=== PATIENT | female | born 1945 | race Caucasian/White ===

== ENCOUNTER → 2016-10-09 | Outpatient (REF) | payer OTHER ==
[~2016-10-09] MED LIST: ALBU17IN INH; AMLO25TA PO; ASPI1TAB PO; CRAN600T PO; FOLI800T PO; LEVO25TA5 PO; LISI10TA4 PO; METF500T PO; METH2.5TA PO; MULTLIQ7 PO; PRED10TA PO; PRED20TA PO; ZOCO10TA PO; [UNRECOGNIZED DRUG - CODE] PO
[2016-10-09 12:47] LABS: CREATININE FOR GFR 0.98 MG/DL (0.55-1.02); GLOMERULAR FILTRATION RATE 59.2 (>39)
== END ==
LOC: M LABDRAW1 11:24
PROVIDERS: ATTEND Internal Medicine Pulmonary Disease
DX: J44.9 Chronic obstructive pulmonary disease, unspecified (principal); R91.8 Other nonspecific abnormal finding of lung field

== ENCOUNTER → 2017-03-06 | Outpatient (CLI) | payer OTHER ==
[~2017-03-06] MED LIST changes: +ANOR1AER INH; +CRANCAP10 PO; -METF500T PO; +METF500T13 PO; +MULTTAB26 PO
[2017-03-06 13:37] LABS: INR 1.03
== END ==
LOC: M SMT 10:37
PROVIDERS: ATTEND Internal Medicine Pulmonary Disease
DX: Z01.812 Encounter for preprocedural laboratory examination (principal); R91.8 Other nonspecific abnormal finding of lung field

== ENCOUNTER → 2017-03-21 | Outpatient (CLI) | payer OTHER ==
[~2017-03-21] MED LIST changes: +LIDOCAINE 1% MDV 20ML VIAL As Ordered ONE
--- NOTE | 2017-03-21 10:42 | REP ---
CHEST, POSTBIOPSY: Postbiopsy image of the chest is performed in the expiratory phase of respiration. There is resultant crowding of lung markings in each lung base. No pneumothorax is seen. IMPRESSION: No pneumothorax status post right lung biopsy. Signed by Jose D Rodriguez MD 03/21/2017 03:27 P
--- NOTE | 2017-03-21 13:38 | REP ---
POST BIOPSY CHEST: Post biopsy PA view of the chest is performed in the expiratory phase of respiration. There is a very tiny right apical pneumothorax. Very mild atelectatic changes are seen in the lung bases. IMPRESSION: Tiny right apical pneumothorax status post right lung biopsy. Signed by Jose D Rodriguez MD 03/21/2017 03:31 P
--- NOTE | 2017-03-21 15:38 | REP ---
CT GUIDED RIGHT LOWER LOBE LUNG BIOPSY: The procedure was performed under the direct supervision of Dr. Rodriguez. The patient has a history of ground glass density nodule in the superior segment of the right lower lobe, which had gradually increased in size from the previous exam. This was seen on a previous CT scan from [facility] performed on 02/21/2017. The risks and benefits of the procedure were explained to the patient and informed consent was obtained. The right lower lobe lung nodule was localized using CT guidance. The skin was prepped and draped in a sterile fashion. 1% Xylocaine was used as a local anesthetic. Using CT guidance a 19/20-gauge coaxial needle biopsy system was inserted and advanced into the nodule. Four core biopsy samples were obtained and sent to the lab. Post biopsy images demonstrate a tiny right pneumothorax. The patient's vital signs were stable at this time. Her oxygen saturations were 96% as they were when she arrived. The patient complained of no pain. She was placed on 2 liters of O2 via nasal cannula. Images obtained 5 minutes later show stable right pneumothorax. Single view PA chest x-ray performed immediately after the procedure shows no evidence of pneumothorax. A single view PA chest x-ray performed two hours later shows a tiny right apical pneumothorax. At the 2 hour film the patient's vital signs were stable and her O2 saturations were status quo as to when she arrived. She complained of no pain. The patient was then discharged home. The patient tolerated the procedure well and there were no immediate complications. Reviewed by AGUEDA Fink 03/21/2017 03:53 PEdited and Signed by Jose D Rodriguez MD 03/21/2017 04:16 P
== END | disposition home or self-care (01) ==
LOC: M RADPRO 08:20
PROVIDERS: ATTEND Internal Medicine Pulmonary Disease
DX: C34.31 Malignant neoplasm of lower lobe, right bronchus or lung (principal); J95.811 Postprocedural pneumothorax

== ENCOUNTER → 2017-04-08 | Outpatient (CLI) | payer OTHER ==
[~2017-04-08] MED LIST changes: -LIDOCAINE 1% MDV 20ML VIAL As Ordered ONE
--- NOTE | 2017-04-10 14:45 | REP ---
Whole body PET CT scan: The study is performed for a right lung nodule. CT guided biopsy of the right lung nodule identified well differentiated adenocarcinoma on 03/24/2017. Whole body PET CT scanning is performed from skull base to the upper thighs. Neck and supraclavicular areas: There is artifactual uptake in the tonsillar tissues bilaterally. There are no hypermetabolic foci. Chest: There are no hypermetabolic foci. The patient's known right lung nodule has a standard uptake value of 1.4, non hypermetabolic. Abdomen, pelvis and upper thighs: There are no hypermetabolic foci. There is nonspecific bowel uptake and physiologic renal excretion. No hepatic or adrenal foci are identified. Impression: There are no hypermetabolic foci. The patient's known right lung nodule demonstrates non hypermetabolic uptake. The studies performed with 10 mCi of F 18 FDG. Signed by Jose D Guevara MD 04/10/2017 02:36 P
== END ==
LOC: M PLARAD 13:13
PROVIDERS: ATTEND Internal Medicine Pulmonary Disease
DX: R91.1 Solitary pulmonary nodule (principal)
CPT/HCPCS: 78815; A9552

== ENCOUNTER → 2017-04-24 | Outpatient (CLI) | payer OTHER ==
--- NOTE | 2017-04-24 14:30 | REPMRS ---
Patient History The patient states she had a clinical breast exam in 03/2017. Patient is postmenopausal and has history of lung cancer at age 72. Family history of breast cancer in sister at age 50 and breast cancer in daughter at age 47. Benign stereotatic breast biopsy of the right breast, 1996. Digital Woman Screen Mammo: April 24, 2017 - Exam #: [id number] Bilateral CC and MLO view(s) were taken. Technologist: Marzena Townsend, Technologist Prior study comparison: April 15, 2016, digital woman screen mammo performed at [facility]. April 12, 2015, digital woman screen mammo performed at [facility]. April 12, 2014, digital woman screen mammo performed at [facility]. FINDINGS: There are scattered fibroglandular densities. There has been no change in the appearance of the mammogram from the prior studies. There is a mild amount of scattered fibroglandular density which is fairly symmetric. There is no interval development of dominant mass, architectural distortion, or clustered microcalcification suggestive of malignancy. ASSESSMENT: BI-RADS/ACR category 1 mammogram. Negative. Recommendation Routine screening mammogram in 1 year (for women over age 40). This mammogram was interpreted with the aid of an FDA-approved computer-aided dectection system. Electronically Signed By: Ovi Jeffers MD 04/24/17 [id number]
== END ==
LOC: M WHC 13:47
PROVIDERS: ATTEND Nurse Practitioner Family
DX: Z12.31 Encounter for screening mammogram for malignant neoplasm of breast (principal); Z78.0 Asymptomatic menopausal state; Z92.89 Personal history of other medical treatment; Z85.118 Personal history of other malignant neoplasm of bronchus and lung; Z80.3 Family history of malignant neoplasm of breast

== ENCOUNTER → 2017-04-24 | Outpatient (CLI) | payer OTHER ==
[2017-04-24 11:38] LABS: ABG BASE EXCESS -1.5 (-2.0-2.0); ABG DEVICE ROOM AIR; ABG HCO3 22.1 MEQ/L (22.0-26.0); ABG PARTIAL PRESSURE CO2 33.7 mmHg (35.0-45.0); ABG PARTIAL PRESSURE O2 74.9 mmHg (75.0-100.0); ABG STANDARD HCO3 23.2 MEQ/L (22.0-26.0); ABG TOTAL CO2 23.1 MEQ/L (23.0-31.0); ABG pH (ARTERIAL) 7.434 UNITS (7.350-7.450)
[2017-04-24 11:56] LABS: MEAN CORPUSCULAR HEMOGLOBIN 32.6 pg (27.0-33.0); MEAN CORPUSCULAR HGB CONC 33.6 g/dl (32.0-36.5); MEAN CORPUSCULAR VOLUME 96.9 fl (80.0-96.0); RED CELL DISTRIBUTION WIDTH 14.8 % (11.5-14.5); WHITE BLOOD COUNT 6.3 K/mm3 (4.0-10.0)
[2017-04-24 12:24] LABS: INR 1.04
[2017-04-24 12:49] LABS: ANION GAP 9 MEQ/L (8-16); BLOOD UREA NITROGEN 16 MG/DL (7-18); CALCIUM LEVEL 9.9 MG/DL (8.8-10.2); CARBON DIOXIDE LEVEL 26 MEQ/L (21-32); CHLORIDE LEVEL 107 MEQ/L (98-107); CREATININE FOR GFR 0.96 MG/DL (0.55-1.02); GLOMERULAR FILTRATION RATE > 60.0 (>39); GLUCOSE, FASTING 101 MG/DL (83-110); POTASSIUM SERUM 4.9 MEQ/L (3.5-5.1); SODIUM LEVEL 142 MEQ/L (136-145)
--- NOTE | 2017-04-24 20:57 | ECGEPIP ---
Stationary ECG Study [facility] Test Date: 2017-04-24 Pat Name: CHRISTIN SONI Department: Room: - Gender: F Integrated Circuits Inspector: VINEET : 1945 Requested By: Gabriel Conde Order Number: [id number] Reading MD: Domingo Buenrostro Measurements Intervals [place] Rate: 75 P: 47 VT: 180 QRS: 11 QRSD: 79 T: 61 QT: 347 QTc: 388 Interpretive Statements SINUS RHYTHM Decreased heart rate compared with 12/08/2014. Electronically Signed On 04-24-2017 20:56:34 EDT by Domingo Buenrostro
--- NOTE | 2017-04-25 14:28 | REP ---
Clinical: History of lung cancer . Comparison: 12/13/2014. Technique: PA and lateral. Findings: The mediastinum and cardiac silhouette are normal. The lung torres demonstrates chronic appearing changes including blunting to the posterior pleural angles on lateral radiograph without acute consolidation, effusion, or pneumothorax. The skeletal structures are intact and normal. Impression: 1. No acute cardiopulmonary process. Signed by Juan Mora MD 04/24/2017 08:53 P
== END ==
LOC: M ADMPAT 10:18
PROVIDERS: ATTEND Thoracic Surgery (Cardiothoracic Vascular Surgery)
DX: Z01.818 Encounter for other preprocedural examination (principal); C34.31 Malignant neoplasm of lower lobe, right bronchus or lung; Z12.31 Encounter for screening mammogram for malignant neoplasm of breast; Z78.0 Asymptomatic menopausal state; Z92.89 Personal history of other medical treatment
CPT/HCPCS: 36415; 71020; 80048; 81001; 82803; 85027; 85610; 85730; 93005; G0202

== ENCOUNTER 2017-05-06 06:53 | Inpatient (IN) | payer OTHER, MEDICARE ==
[2017-04-24 11:30] VITALS: BP 156/80
[~2017-05-06] VITALS: Ht 162.6 cm; Wt 89.9 kg
[2017-05-06] VITALS (9 sets, daily range): BP systolic 104–122; BP diastolic 49–59; O2SAT 98
[2017-05-06] MEDS ORDERED: LR 1,000 ML IV SCH (07:00)
[2017-05-06] MEDS ORDERED: MUPIROCIN 2% OINT 22 GM TUBE TOP ONE (07:45)
[2017-05-06] MEDS ORDERED: VANCOMYCIN HCL 1,000 MG, VIAL MATE ADAPTER 1 EACH in D5W 250 ML IV ONE (07:45)
[2017-05-06] MEDS ORDERED: MIDAZOLAM INJ 2 MG/2 ML VIAL (J2250) As Ordered ONE ×2 (08:08→09:09)
[2017-05-06] MEDS ORDERED: fentaNYL 100 MCG/2 ML INJECTION (J3010) As Ordered ONE ×3 (08:08→11:06)
[2017-05-06] MEDS ORDERED: PANTOPRAZOLE 40MG TAB (PROTONIX) PO SCH (09:00)
[2017-05-06] MEDS ORDERED: CETACAINE SPRAY 20GM (FLOOR STOCK) As Ordered ONE (09:04)
[2017-05-06] MEDS ORDERED: BUPIVACAINE LIPOSOME/PF 1.3% 20 ML VIAL (13.3MG/ML)(EXPAREL) As Ordered ONE (09:05)
[2017-05-06] MEDS ORDERED: BUPIVACAINE HCL 0.5% 10 ML VIAL As Ordered ONE (09:06)
[2017-05-06] MEDS ORDERED: PROPOFOL 200 MG/20 ML VIAL As Ordered ONE (09:11)
[2017-05-06] MEDS ORDERED: LIDOCAINE 2% INJ 100 MG/5 ML SDV (FOR ANES.) As Ordered ONE (09:12)
[2017-05-06] MEDS ORDERED: ROCURONIUM BROMIDE 50 MG/5 ML VIAL/SYRINGE As Ordered ONE ×2 (09:12→10:59)
[2017-05-06] MEDS ORDERED: MIDAZOLAM INJ 2 MG/2 ML VIAL (J2250) IV PRN ×2 (09:30)
[2017-05-06] MEDS ORDERED: fentaNYL 100 MCG/2 ML INJECTION (J3010) IV PRN (09:30)
[2017-05-06] MEDS ORDERED: ePHEDrine SULFATE 25 MG/5 ML(5MG/ML) SYRINGE As Ordered ONE (11:05)
[2017-05-06] MEDS ORDERED: PHENYLephrine HCL 500 MCG/5 ML (100MCG/ML) SYRINGE (J2370) As Ordered ONE (11:05)
[2017-05-06] MEDS ORDERED: ONDANSETRON 4MG/2ML VIAL (J2405) As Ordered ONE (11:06)
[2017-05-06] MEDS ORDERED: dexameTHASONE 4 MG/ML 1ML VIAL (J1100) As Ordered ONE (11:06)
[2017-05-06] MEDS ORDERED: BUPIVACAINE HCL 0.25% 30 ML VIAL As Ordered ONE (11:06)
[2017-05-06] MEDS ORDERED: HYDROmorphone HCL 2 MG/ML 1ML VIAL (J1170) As Ordered ONE (12:44)
[2017-05-06] MEDS ORDERED: GLYCOPYRROLATE INJ 0.2 MG/ML 2 ML VIAL As Ordered ONE (12:53)
[2017-05-06] MEDS ORDERED: NEOSTIGMINE 1MG/ML 5 ML SYRINGE (J2710) As Ordered ONE (12:53)
[2017-05-06] MEDS ORDERED: ONDANSETRON 4MG/2ML VIAL (J2405) IV PRN (13:00)
[2017-05-06] MEDS ORDERED: WALLBOXKEY XX PRN (13:00)
[2017-05-06] MEDS ORDERED: EPIDURAL/PCA KEYS XX PRN (13:00)
[2017-05-06] MEDS ORDERED: NALOXONE INJ 0.4 MG/1 ML VIAL (J2310) IV PRN (13:00)
[2017-05-06] MEDS ORDERED: FENTANYL 2MCG/ML BUPIVACAINE 0.0625% NACL 250ML IV BAG As Ordered ONE (13:08)
[2017-05-06] MEDS ORDERED: DEXTROSE 50% 50 ML SYRINGE IV PRN (13:15)
[2017-05-06] MEDS ORDERED: GLUCOSE 4 GM CHEW TABLET PO PRN (13:15)
[2017-05-06] MEDS ORDERED: ACETAMINOPHEN TAB 650MG DOSE (2X325MG) PO PRN (13:15)
[2017-05-06] MEDS ORDERED: PERCOCET 5MG/325MG TAB PO PRN (13:15)
[2017-05-06] MEDS ORDERED: GLUCAGON FOR INJ 1 MG VIAL (J1610) SC PRN (13:15)
[2017-05-06] MEDS ORDERED: BISACODYL 10 MG SUPP PR PRN (13:15)
[2017-05-06] MEDS ORDERED: LEVALBUTEROL 1.25 MG/0.5 ML CONCENTRATE NEB NEB PRN (13:15)
[2017-05-06 13:37] LABS: ABG BASE EXCESS -3.7 (-2.0-2.0); ABG HCO3 23.6 MEQ/L (22.0-26.0); ABG PARTIAL PRESSURE CO2 51.8 mmHg (35.0-45.0); ABG PARTIAL PRESSURE O2 82.1 mmHg (75.0-100.0); ABG STANDARD HCO3 21.3 MEQ/L (22.0-26.0); ABG TOTAL CO2 25.2 MEQ/L (23.0-31.0); ABG pH (ARTERIAL) 7.276 UNITS (7.350-7.450)
[2017-05-06 13:39] LABS: BASO % 0.4 % (0.0-1.0); EOS % 0.3 % (0.0-3.0); LARGE UNSTAINED CELL # 0.1 K/mm3 (0.0-0.4); LARGE UNSTAINED CELL % 0.8 % (0.0-4.0); LYMPH # 0.7 K/mm3 (1.5-4.5); LYMPH % 8.9 % (24.0-44.0); MEAN CORPUSCULAR HEMOGLOBIN 32.3 pg (27.0-33.0); MEAN CORPUSCULAR HGB CONC 32.6 g/dl (32.0-36.5); MEAN CORPUSCULAR VOLUME 99.2 fl (80.0-96.0); MONO # 0.2 K/mm3 (0.0-0.8); NEUTROPHILS # 7.3 K/mm3 (1.8-7.7); NEUTROPHILS % 87.6 % (36.0-66.0); PLATELET COUNT, AUTOMATED 256 k/mm3 (150-450); RED CELL DISTRIBUTION WIDTH 14.3 % (11.5-14.5); WHITE BLOOD COUNT 8.3 K/mm3 (4.0-10.0)
--- NOTE | 2017-05-06 13:52 | REP ---
Clinical: Status post right lower lobectomy. Comparison: 04/24/2017. Findings: Two right-sided chest tubes extend to the medial upper hemithorax. No pneumothorax or significant opacities involving the right lung zone are appreciated. Left base demonstrates trace atelectasis. Mediastinum and cardiac silhouette are stable. Skeletal structures are intact. Small amount of subcutaneous emphysema along the right lateral chest wall. Impression: Status post right lower lobectomy. Trace left basilar atelectasis suggested. Signed by Juan Mora MD 05/06/2017 01:44 P
[2017-05-06] MEDS: LEVALBUTEROL 1.25 MG/0.5 ML CONCENTRATE NEB NEB SCH ×2 (14:00→20:08)
[2017-05-06] MEDS ORDERED: KETOROLAC 30 MG/ML VIAL (J1885) As Ordered ONE (14:03)
[2017-05-06] MEDS: KETOROLAC 30 MG/ML VIAL (J1885) IV SCH ×2 (14:10→19:59)
[2017-05-06 14:51] LABS: ANION GAP 9 MEQ/L (8-16); BLOOD UREA NITROGEN 14 MG/DL (7-18); CALCIUM LEVEL 8.5 MG/DL (8.8-10.2); CARBON DIOXIDE LEVEL 24 MEQ/L (21-32); CHLORIDE LEVEL 110 MEQ/L (98-107); CREATININE FOR GFR 0.82 MG/DL (0.55-1.02); GLOMERULAR FILTRATION RATE > 60.0 (>39); GLUCOSE, FASTING 153 MG/DL (83-110); POTASSIUM SERUM 4.5 MEQ/L (3.5-5.1); SODIUM LEVEL 143 MEQ/L (136-145)
[2017-05-06 14:59] LABS: ABG HCO3 22.9 MEQ/L (22.0-26.0); ABG PARTIAL PRESSURE CO2 49.4 mmHg (35.0-45.0); ABG PARTIAL PRESSURE O2 95.8 mmHg (75.0-100.0); ABG STANDARD HCO3 21.1 MEQ/L (22.0-26.0); ABG TOTAL CO2 24.4 MEQ/L (23.0-31.0); ABG pH (ARTERIAL) 7.284 UNITS (7.350-7.450)
[2017-05-06] MEDS: ONDANSETRON 4MG/2ML VIAL (J2405) IV PRN ×2 (15:39→20:16)
[2017-05-06] MEDS: LISINOPRIL 20 MG TAB PO SCH (15:43)
[2017-05-06] MEDS: FENTANYL/BUPIVACAINE/NACL BAG 250 ML EPIDURAL SCH (15:44)
[2017-05-06] MEDS: OCUVITE 1 TAB PO SCH (15:46)
[2017-05-06] MEDS: ASPIRIN 81 MG ENTERIC TAB PO SCH (15:47)
[2017-05-06] MEDS: PANTOPRAZOLE 40MG INJ (PROTONIX) (C9113) IV SCH (15:50)
[2017-05-06] MEDS: KCL 20MEQ IN D5/NS 1000ML 1,000 ML IV SCH (15:50)
[2017-05-06] MEDS: HumaLOG INSULIN (NovoLOG) PER UNIT SC SCH ×2 (18:28→21:00)
[2017-05-06] MEDS: VANCOMYCIN HCL 1,000 MG, VIAL MATE ADAPTER 1 EACH in D5W 250 ML IV SCH (20:00)
[2017-05-06] MEDS: DOCUSATE SODIUM 100 MG CAP PO SCH (21:06)
[2017-05-06] MEDS: HEPARIN SOD (PORCINE) 5000 UNITS/ML VIAL SC SCH (21:07)
[2017-05-07] VITALS (19 sets, daily range): BP systolic 93–129; BP diastolic 47–106; O2SAT 95–97
[2017-05-07] MEDS ORDERED: FUROSEMIDE 40 MG/4 ML VIAL (J1940) IV ONE ×2 (01:00→14:00)
[2017-05-07] MEDS: KETOROLAC 30 MG/ML VIAL (J1885) IV SCH ×4 (01:25→19:56)
[2017-05-07] MEDS: LEVALBUTEROL 1.25 MG/0.5 ML CONCENTRATE NEB NEB SCH ×4 (01:38→19:52)
[2017-05-07] MEDS: KCL 20MEQ IN D5/NS 1000ML 1,000 ML IV SCH (03:04)
[2017-05-07] MEDS: LEVOTHYROXINE 25MCG TABLET (0.025MG) PO SCH (05:39)
[2017-05-07 05:44] LABS: ABG BASE EXCESS -2.5 (-2.0-2.0); ABG HCO3 22.7 MEQ/L (22.0-26.0); ABG PARTIAL PRESSURE CO2 41.1 mmHg (35.0-45.0); ABG PARTIAL PRESSURE O2 86.6 mmHg (75.0-100.0); ABG STANDARD HCO3 22.4 MEQ/L (22.0-26.0); ABG pH (ARTERIAL) 7.361 UNITS (7.350-7.450)
[2017-05-07 05:50] LABS: BASO % 0.2 % (0.0-1.0); EOS % 0.3 % (0.0-3.0); LARGE UNSTAINED CELL # 0.2 K/mm3 (0.0-0.4); LARGE UNSTAINED CELL % 1.6 % (0.0-4.0); LYMPH % 10.9 % (24.0-44.0); MEAN CORPUSCULAR HEMOGLOBIN 32.8 pg (27.0-33.0); MEAN CORPUSCULAR HGB CONC 34.3 g/dl (32.0-36.5); MEAN CORPUSCULAR VOLUME 95.8 fl (80.0-96.0); MONO # 0.5 K/mm3 (0.0-0.8); MONO % 4.9 % (0.0-5.0); NEUTROPHILS # 7.7 K/mm3 (1.8-7.7); NEUTROPHILS % 82.2 % (36.0-66.0); PLATELET COUNT, AUTOMATED 244 k/mm3 (150-450); RED CELL DISTRIBUTION WIDTH 14.1 % (11.5-14.5); WHITE BLOOD COUNT 9.3 K/mm3 (4.0-10.0)
[2017-05-07 06:06] LABS: CALCIUM LEVEL 7.7 MG/DL (8.8-10.2); CREATININE FOR GFR 0.97 MG/DL (0.55-1.02); GLOMERULAR FILTRATION RATE 59.8 (>39); POTASSIUM SERUM 4.3 MEQ/L (3.5-5.1)
[2017-05-07] MEDS: ONDANSETRON 4MG/2ML VIAL (J2405) IV PRN ×3 (07:38→20:50)
--- NOTE | 2017-05-07 07:52 | RO ---
DATE OF PROCEDURE: 05/06/2017 PREPROCEDURE DIAGNOSIS: Right lower lobe squamous cell carcinoma. POSTPROCEDURE DIAGNOSIS: Right lower lobe squamous cell carcinoma. PROCEDURE: Right lower lobectomy, mediastinal node dissection, five level rib block, and bronchoscopy. SURGEON: Gabriel Waite MD CLINICAL MOLECULAR GENETICIST: ANESTHESIA: FINDINGS: The bronchoscopy revealed a normal branching tracheobronchial tree. There were no endobronchial lesions. The thoracotomy revealed a lung that had almost complete fissures, but was very sticky to dissect. She had numerous adhesions of the lower lobes in the mediastinum into the diaphragm. Mediastinal node dissection revealed quite bulky nodes, but they were all soft and looked anthracotic. DESCRIPTION OF PROCEDURE: Under satisfactory general anesthesia and single lumen tube endotracheal intubation, bronchoscope was placed in the tracheobronchial tree. Each branch was subsegment, thoroughly inspected and there were no endobronchial lesions. There was a normal branching tree. The patient was then placed in the left lateral decubitus position and was sterilely prepped and draped in the usual fashion. This was accomplished after intubating the patient with a double lumen tube and undertaking single lung ventilation. Incision was carried down through the subcutaneous tissue and the latissimus dorsi muscle was divided. The ischial serratus was spared. The chest was entered through the fifth intercostal space. Ribs were undercut. The above findings were noted and attention was first turned to the major fissure at the confluence of fissures. The pulmonary artery was eventually dissected and found within the depths of the fissure. The posterior mediastinal pleura was dissected so as to reveal the division between the bronchus intermedius and the upper lobe bronchus. The apical basilar segmental artery on the lower lobe was identified and a minor fissure was completed by use of OXANA Swan stapler after gaining a pathway from just above the inferior basilar segment artery to the posterior mediastinal pleura. The two large branches could then easily be seen, including the apical basilar segment. These were bluntly dissected and surrounded with a vessel loop. They were divided by use of a vascular OXANA stapler. The inferior pulmonary ligament was divided. In order to do so, numerous adhesions to the diaphragm and to the mediastinum had to be cleared. The inferior pulmonary vein was noted at the top of the inferior fissure and dissected free. It too could be surrounded by a vessel loop and was stapled by use of the OXANA vascular stapler. This then left the bronchus. There were numerous nodes on the bronchus and these were dissected free and sent as a separate specimen on the bronchus intermedius. The bronchus was clamped, the lung was tested, and the middle lobe came up nicely. The middle lobe bronchus could be easily ascertained and spared. The stapler was fired and the bronchus was amputated. The specimen was delivered to pathology for margins, which came back grossly clear. Attention was then turned to the mediastinum where the mediastinal pleura was incised between the superior vena cava and the trachea. The azygous vein was divided so as to obtain all the nodes. A complete node dissection was then undertaken and sent for pathological examination. The nodes extended down to the right main pulmonary artery and were dissected free and clear. After achieving adequate hemostasis, a five level rib block was undertaken with Exparel. Two chest tubes were placed, #28 curved and straight. After achieving adequate hemostasis, the ribs were reapproximated with use of #1 pericostal figure-of-8 sutures, the extrathoracic muscles by use of running #0 Vicryl suture and the subcutaneous tissue with the use of #3-0 Vicryl suture and the skin by use of #3-0 Monocryl subcuticular suture. The patient tolerated the procedure well and left the operating room in satisfactory condition for the recovery room.
[2017-05-07] MEDS ORDERED: metFORMIN (GLUCOPHAGE) 500 MG TAB PO SCH (08:00)
--- NOTE | 2017-05-07 08:34 | REP ---
Clinical: Status post right lower lobectomy. Technique: PA and lateral. Comparison: 05/06/1979 and 47 p.m. Findings: Postoperative changes involving the right hemithorax include to stable chest tubes as well as small amount of subcutaneous emphysema along the right lateral chest wall. A small residual right pleural effusion is suggested. No pneumothorax. The left hemithorax remains stable. The mediastinum and cardiac silhouette are within normal limits. Skeletal structures are intact. Impression: Postoperative changes involving the right hemithorax. Cannot exclude small right pleural effusion. Signed by Juan Mora MD 05/07/2017 08:25 A
[2017-05-07] MEDS: LISINOPRIL 20 MG TAB PO SCH (09:00)
[2017-05-07] MEDS: VANCOMYCIN HCL 1,000 MG, VIAL MATE ADAPTER 1 EACH in D5W 250 ML IV SCH ×2 (09:04→19:57)
[2017-05-07] MEDS: HEPARIN SOD (PORCINE) 5000 UNITS/ML VIAL SC SCH ×2 (09:20→20:50)
[2017-05-07] MEDS: ASPIRIN 81 MG ENTERIC TAB PO SCH (09:21)
[2017-05-07] MEDS: OCUVITE 1 TAB PO SCH (09:21)
[2017-05-07] MEDS: HumaLOG INSULIN (NovoLOG) PER UNIT SC SCH ×4 (09:21→20:48)
[2017-05-07] MEDS: DOCUSATE SODIUM 100 MG CAP PO SCH ×2 (09:21→20:49)
[2017-05-07] MEDS: MOM 30ML SUSPENSION UDC PO SCH (09:22)
[2017-05-07] MEDS: PANTOPRAZOLE 40MG INJ (PROTONIX) (C9113) IV SCH (09:22)
[2017-05-07] MEDS: FENTANYL/BUPIVACAINE/NACL BAG 250 ML EPIDURAL SCH (09:29)
[2017-05-07] MEDS: METOCLOPRAMIDE INJ 10MG/2ML VIAL (J2765) IV PRN (11:47)
--- NOTE | 2017-05-07 12:48 | IPN ---
DATE: 05/07/2017 This is now the first postoperative day for Mrs. Ingram status post right lower lobectomy and complete mediastinal node dissections. She has had a stable night of surgery. She had some decreased urine output yesterday with positive input and output and I therefore gave her Lasix. Her pain is being well controlled at the chest tube insertion site and at the incisional site. Her vital signs show a maximum temperature (t-max) of 98.7 with a heart rate that ranges between 77 and 90 in a sinus rhythm, respiratory rate of 18 to 20 without the use of accessory muscles, who is 98 to 99% saturated on 3 liters nasal cannula and whose blood pressure is ranging between 93/52 to 126/52. Her intake and output over the past 24 hours has been recorded as 4274 in and 560 out for a positivity of 3700 mL. She has put out 170 mL from the chest tube yesterday and this morning there is no air leak. In response to the Lasix last night, she put out 800 mL. PHYSICAL EXAMINATION: LUNGS: Her lungs show normal vesicular sounds. There are occasional scattered rhonchi on the right side, which clear with coughing. Percussion note is full to the diaphragm. CARDIAC EXAM: Without murmurs, clicks, gallops or rubs. I cannot feel her point of maximum impulse (PMI). S1, S2 are normal. ABDOMEN: Soft, nontender. Bowel sounds positive. There is no hepatomegaly. There is no costovertebral angle tenderness. EXTREMITIES: Show trace to 1+ pretibial edema. No calf tenderness. No differential swelling of the upper extremities. SKIN: Warm, dry and perfused without cyanosis or mottling, including that of the nail beds and knees. NECK: Supple. There is no jugular venous distention. No subcutaneous emphysema. Trachea is midline. MOUTH: Shows her mucous membranes to be pink and moist. Lips and commissures without lesions. There is no thrush. EYES: Show her pupils to be equal and reactive. Extraocular motions are intact. Sclerae anicteric. NEUROLOGIC: Shows II through XII intact with gross motor and gross sensation intact. Gait is not tested. PSYCHIATRIC: Shows her to be awake and alert, oriented times three with appropriate mood and affect and conversational. Her white count today is 9.3 with a hemoglobin and hematocrit of 11.9 and 34.8, down from 12.6 and 38.7. This is no doubt secondary to hemodilution. Platelet count is 244 and stable. Differential shows 82% neutrophils, 10% lymphocytes, 4% monocytes. There are no immature forms. No toxic granulations. Her electrolytes are normal with a BUN and creatinine of 18 and 0.97 with a glucose of 135 and a calcium of 7.7. Blood gases this morning show a pH of 7.36 with a PCO2 of 41 and PO2 of 86 and a base excess of -2.5. Her chest x-ray today shows her lung fully expanded to the chest wall. There is obligate volume loss of the right side secondary to the lobectomy. There is minimal subcutaneous emphysema. There are no infiltrates. Chest tubes are in good place. I have gone over the slides with DR. Arora of pathology. She has a small, less than 1 cm well differentiated adenocarcinoma. Intraparenchymal nodes are negative. Mediastinal nodes are still pending. IMPRESSION: 1. Adenocarcinoma of the right lower lobe, clinical stage 1A. 2. Diabetes. 3. Hypertension. 4. Coronary artery disease. 5. Hypothyroidism. 6. Chronic obstructive pulmonary disease (COPD). PLAN/DISCUSSION: I will keep her chest tubes on suction today. I will again gently diurese her. We will discontinue the arterial line and write her for transfer to the progressive care unit (PCU).
[2017-05-07] MEDS: diphenhydrAMINE INJ 50MG/ML VIAL (J1200) IV PRN ×2 (14:39→20:50)
[2017-05-08] MEDS: LEVALBUTEROL 1.25 MG/0.5 ML CONCENTRATE NEB NEB SCH ×4 (01:40→19:45)
[2017-05-08] MEDS: KETOROLAC 30 MG/ML VIAL (J1885) IV SCH ×4 (03:17→20:20)
[2017-05-08 04:00] VITALS: BP 154/69
[2017-05-08 05:32] LABS: BASO % 0.4 % (0.0-1.0); EOS # 0.1 K/mm3 (0.0-0.50); EOS % 1.2 % (0.0-3.0); LARGE UNSTAINED CELL # 0.1 K/mm3 (0.0-0.4); LARGE UNSTAINED CELL % 1.4 % (0.0-4.0); LYMPH # 1.2 K/mm3 (1.5-4.5); LYMPH % 14.4 % (24.0-44.0); MEAN CORPUSCULAR HEMOGLOBIN 32.5 pg (27.0-33.0); MEAN CORPUSCULAR VOLUME 98.5 fl (80.0-96.0); MONO # 0.4 K/mm3 (0.0-0.8); MONO % 4.4 % (0.0-5.0); NEUTROPHILS # 6.7 K/mm3 (1.8-7.7); NEUTROPHILS % 78.1 % (36.0-66.0); PLATELET COUNT, AUTOMATED 214 k/mm3 (150-450); RED CELL DISTRIBUTION WIDTH 14.2 % (11.5-14.5); WHITE BLOOD COUNT 8.5 K/mm3 (4.0-10.0)
[2017-05-08 05:44] LABS: CALCIUM LEVEL 7.7 MG/DL (8.8-10.2); CREATININE FOR GFR 1.16 MG/DL (0.55-1.02); GLOMERULAR FILTRATION RATE 48.6 (>39); POTASSIUM SERUM 4.6 MEQ/L (3.5-5.1)
[2017-05-08] MEDS: LEVOTHYROXINE 25MCG TABLET (0.025MG) PO SCH (06:01)
[2017-05-08] MEDS: FENTANYL/BUPIVACAINE/NACL BAG 250 ML EPIDURAL SCH (06:06)
[2017-05-08] MEDS: HumaLOG INSULIN (NovoLOG) PER UNIT SC SCH ×4 (07:30→21:34)
[2017-05-08 08:00] VITALS: BP 119/58
--- NOTE | 2017-05-08 08:23 | REP ---
Clinical: Status post right lower lobectomy. Technique: PA and lateral. Comparison: 05/07/2017. Findings: Visualized portions of the mediastinum and cardiac silhouette are within normal limits. Two right-sided chest tubes are in stable position. A small right hydropneumothorax is identified within the apical air gap of approximately 15 mm. Bilateral opacities in the lung bases suggest scattered atelectasis. Small amount of subcutaneous emphysema along the right lateral chest wall related to surgery and chest tube placement is minimally improved. Skeletal structures appear intact. Impression: 1. Small right hydropneumothorax. 2. Bibasilar atelectasis and small amount of right lateral subcutaneous emphysema similar to prior examination. Signed by Juan Mora MD 05/08/2017 08:14 A
[2017-05-08] MEDS: OCUVITE 1 TAB PO SCH (08:38)
[2017-05-08] MEDS: DOCUSATE SODIUM 100 MG CAP PO SCH ×2 (08:38→20:20)
[2017-05-08] MEDS: VANCOMYCIN HCL 1,000 MG, VIAL MATE ADAPTER 1 EACH in D5W 250 ML IV SCH (08:38)
[2017-05-08] MEDS: ASPIRIN 81 MG ENTERIC TAB PO SCH (08:38)
[2017-05-08] MEDS: MOM 30ML SUSPENSION UDC PO SCH (08:38)
[2017-05-08] MEDS: LISINOPRIL 20 MG TAB PO SCH (08:39)
[2017-05-08] MEDS: PANTOPRAZOLE 40MG INJ (PROTONIX) (C9113) IV SCH (08:40)
[2017-05-08] MEDS: HEPARIN SOD (PORCINE) 5000 UNITS/ML VIAL SC SCH ×2 (08:40→20:20)
[2017-05-08 11:50] VITALS: BP 129/60
--- NOTE | 2017-05-08 14:16 | IPN ---
DATE: 05/08/2017 This is now the second postoperative day for Mrs. Ingram. She is doing well. She is in progressive care unit (PCU). Her pain is being well controlled and she is not short of breath. She has not yet had a bowel movement. She has not walked yet and the nurses are going to get her up and walk her. Her vital signs snow a T-max of 100.7 with a heart rate that ranges between 85 and 90 and in sinus rhythm with a respiratory rate of 18-20 without the use of accessory muscles, who is 96-97% saturated on 3 liters nasal cannula and has a blood pressure that ranges between 154/69 to 119/58. Her intake and output over the past 24 hours has been recorded as 3412 in and 2410 out for a positivity of 1000 mL. Her chest tube has put out 300 mL and there is no air leak. Weight today is 93.6. On physical examination, her lungs have normal vesicular sounds. Percussion note is full to the diaphragm. Cardiac exam is without murmurs, clicks, gallops or rubs. I cannot feel her point of maximum impulse (PMI). S1 and S2 are normal. Abdomen is soft and nontender. Bowel sounds are positive. There is no hepatomegaly. No CVA tenderness. There may be a trace of pit of pretibial edema. On her lower extremities, but there is no calf tenderness. Skin is warm, dry and perfused without cyanosis or mottling including that of the nail beds and knees. Neck is supple. There is no jugular venous distention. No subcutaneous emphysema. Trachea is midline. Mouth shows her mucous membranes to be pink and moist. Lips and commissures are without lesions. There is no thrush. Eyes show her pupils to be equal and reactive. Extraocular movements intact. Sclerae nonicteric. Neurologic shows II-XII intact along with gross motor and gross sensation intact. Gait is not tested. Psychiatric showed her to be awake, alert and oriented times three with appropriate and affect and conversational. White count today is 8.5 with hemoglobin and hematocrit 11.3 and 34.2 unchanged from yesterday with a platelet count of 214. Differential shows 78% neutrophils , 14% lymphocytes, 4% monocytes. There are no immature forms or toxic granulations. Her electrolytes are essentially normal with a BUN and creatinine of 18 and 1.16. Glucose is 117 with a calcium of 7.7. There are no blood gases on her today. Her chest x-ray shows the lung fully expanded to the chest wall. The costophrenic angles are sharp. There is a small apical air space on the right side. Chest tubes are in good place and there are no infiltrates. There is obligate volume loss of the right side secondary to lobectomy. I have gone over the slides with Dr. Herrera of pathology. They have discovered a second satellite tumor of well differentiated adenocarcinoma. This therefore makes a T3 lesion. All lymph nodes are negative. She therefore is going to pathologically stage out as T3N0M0 or stage II B disease. As such, she will need chemotherapy and I will present her at multidisciplinary tumor conference. IMPRESSION: 1. Stage II B, T3N0M0 adenocarcinoma, well differentiated. 2. Postoperative day #2 status post right lower lobectomy. 3. Diabetes. 4. Hypertension. 5. Coronary artery disease. 6. Hypothyroidism. 7. Chronic obstructive pulmonary disease (COPD). PLAN AND DISCUSSION: I will discontinue her chest tube suction today. There is no air leak. I will informed the patient of the change of staging. I will not diurese her today. [facility]
[2017-05-08 16:00] VITALS: BP 137/63
[2017-05-08] MEDS: ONDANSETRON 4MG/2ML VIAL (J2405) IV PRN (16:43)
[2017-05-08 20:00] VITALS: BP 135/75
[2017-05-08 23:59] VITALS: BP 140/64
[2017-05-09] MEDS: FENTANYL/BUPIVACAINE/NACL BAG 250 ML EPIDURAL SCH ×2 (01:12→20:29)
[2017-05-09] MEDS: KETOROLAC 30 MG/ML VIAL (J1885) IV SCH ×4 (01:23→20:41)
[2017-05-09] MEDS: LEVALBUTEROL 1.25 MG/0.5 ML CONCENTRATE NEB NEB SCH ×4 (02:00→20:13)
[2017-05-09 04:00] VITALS: BP 127/59
[2017-05-09 05:30] LABS: BASO % 0.5 % (0.0-1.0); EOS # 0.2 K/mm3 (0.0-0.50); EOS % 2.1 % (0.0-3.0); LARGE UNSTAINED CELL # 0.1 K/mm3 (0.0-0.4); LYMPH # 1.4 K/mm3 (1.5-4.5); LYMPH % 19.7 % (24.0-44.0); MEAN CORPUSCULAR HEMOGLOBIN 32.5 pg (27.0-33.0); MEAN CORPUSCULAR HGB CONC 33.1 g/dl (32.0-36.5); MEAN CORPUSCULAR VOLUME 98.4 fl (80.0-96.0); MONO # 0.3 K/mm3 (0.0-0.8); MONO % 4.3 % (0.0-5.0); NEUTROPHILS # 5.1 K/mm3 (1.8-7.7); NEUTROPHILS % 71.4 % (36.0-66.0); PLATELET COUNT, AUTOMATED 226 k/mm3 (150-450); WHITE BLOOD COUNT 7.1 K/mm3 (4.0-10.0)
[2017-05-09] MEDS: LEVOTHYROXINE 25MCG TABLET (0.025MG) PO SCH (05:37)
[2017-05-09 05:43] LABS: CALCIUM LEVEL 8.1 MG/DL (8.8-10.2); CREATININE FOR GFR 1.1 MG/DL (0.55-1.02); GLOMERULAR FILTRATION RATE 51.7 (>39); POTASSIUM SERUM 4.7 MEQ/L (3.5-5.1)
[2017-05-09] MEDS: ONDANSETRON 4MG/2ML VIAL (J2405) IV PRN (07:27)
[2017-05-09] MEDS: HumaLOG INSULIN (NovoLOG) PER UNIT SC SCH ×4 (07:30→20:41)
[2017-05-09 08:00] VITALS: BP 137/61
[2017-05-09] MEDS: ASPIRIN 81 MG ENTERIC TAB PO SCH (09:21)
[2017-05-09] MEDS: LISINOPRIL 20 MG TAB PO SCH (09:21)
[2017-05-09] MEDS: DOCUSATE SODIUM 100 MG CAP PO SCH ×2 (09:21→20:40)
[2017-05-09] MEDS: OCUVITE 1 TAB PO SCH (09:21)
[2017-05-09] MEDS: MOM 30ML SUSPENSION UDC PO SCH (09:22)
[2017-05-09] MEDS: HEPARIN SOD (PORCINE) 5000 UNITS/ML VIAL SC SCH ×2 (09:22→20:40)
[2017-05-09] MEDS: PANTOPRAZOLE 40MG INJ (PROTONIX) (C9113) IV SCH (09:22)
--- NOTE | 2017-05-09 09:42 | REP ---
PA and lateral chest: Comparison is 05/08/2017. The patient is status post right lower lobectomy. The two right thoracotomy tubes are unchanged. There is a small pneumothorax over the apex of the right lung, not significantly changed. Bibasilar atelectasis is again identified, not significantly changed. Cardiac size is normal. Small volume of subcutaneous emphysema along the right lateral chest wall is unchanged. There is an epidural catheter, unchanged. Impression: There is no significant interval change. Signed by Jose D Guevara MD 05/09/2017 08:52 A
[2017-05-09] MEDS ORDERED: FUROSEMIDE 40 MG/4 ML VIAL (J1940) IV ONE (10:30)
--- NOTE | 2017-05-09 10:47 | IPN ---
DATE: 05/09/2017 This is now the third postoperative day for Ms. Ingram. She is feeling a bit nauseated today and had some dry heaves last night. Her pain is being well controlled with the epidural catheter. Her vital signs show a T-max of 99.2 with a heart rate that ranges between 70 and 80 in sinus rhythm. Respiratory rate is constant at 18, who is 95% saturation on 3 liters nasal cannula. Blood pressures ranging between 137/61 to 127/59. Her intake and output over the past 24 hours is recorded at 1748 and 1870 for a negativity of 124 mL. She has put out 245 mL from the chest tube and she weighs 90.9 kilograms today compared to 93.6 kilograms yesterday On physical examination, she has some scattered rhonchi which cleared with coughing on both sides with the right greater than left. Percussion note is full to the diaphragm. Cardiac exam is without murmurs, clicks, gallops or rubs. I cannot feel her point of maximum impulse (PMI). S1 and S2 are normal. Abdomen is soft and nontender by tympanitic. Bowel sounds are positive. She has not yet had a bowel movement. Extremities still show 1+ pretibial edema with no calf tenderness. No differential swelling of the upper extremities. Skin is warm, dry and perfused without cyanosis or mottling including that of the nail beds and knees. Neck is supple. There is no jugular venous distention. No subcutaneous emphysema. Trachea is midline. Mouth shows her mucous membranes to be pink and moist. Lips and commissures are without lesions. There is no thrush. Eyes show her pupils to be equal and reactive. Extraocular movements intact. Sclerae nonicteric. Neurologic shows II-XII intact along with gross motor and gross sensation intact. Gait is not tested. Psychiatric showed her to be awake, alert and oriented times three with appropriate and affect and conversational. Her white count today is 7.1 with a hemoglobin and hematocrit of 11.6 and 35.0 and a platelet count of 226. Differential shows 71% neutrophils, 19% lymphocytes, 4% monocytes. Chemistry today normal with a BUN and creatinine of 19 and 1.1 with a glucose of 96 and a calcium 8.1. Her chest x-ray today still shows a small apical cap of air in the right cupula of the right hemithorax. Costophrenic angle is sharp. There is a little bit of atelectasis in the right lower hemithorax. Trachea is midline and there is minimal subcutaneous emphysema. I see no infiltrates. I have gone over the slides with Dr. Arora once again of pathology. The additional satellite lesion looks to be microscopic and therefore, she has been again down-staged to stage IA disease. All lymph nodes are negative. I think this still deserves a discussion at tumor conference. For the time being, I will defer to pathology staging. IMPRESSION: 1. Stage I A, [id number] adenocarcinoma well differentiated. 2. Postoperative day #3 status post right lower lobectomy. 3. Hypertension. 4. Diabetes. 5. Coronary artery disease. 6. Hypothyroidism. 7. Chronic obstructive pulmonary disease (COPD). PLAN AND DISCUSSION: I will diurese her today but I will continue her chest tube. Her chest tube is already off suction.
[2017-05-09] MEDS: METOCLOPRAMIDE INJ 10MG/2ML VIAL (J2765) IV PRN (11:33)
[2017-05-09 12:00] VITALS: BP 103/52
[2017-05-09 16:00] VITALS: BP 102/50
[2017-05-09 20:00] VITALS: BP 117/56
[2017-05-10] VITALS (7 sets, daily range): BP systolic 105–130; BP diastolic 52–59
[2017-05-10] MEDS: LEVALBUTEROL 1.25 MG/0.5 ML CONCENTRATE NEB NEB SCH ×4 (01:37→20:54)
[2017-05-10] MEDS: KETOROLAC 30 MG/ML VIAL (J1885) IV SCH ×4 (01:39→20:09)
[2017-05-10] MEDS: LEVOTHYROXINE 25MCG TABLET (0.025MG) PO SCH (05:13)
[2017-05-10 05:26] LABS: BASO % 0.4 % (0.0-1.0); EOS # 0.2 K/mm3 (0.0-0.50); EOS % 2.3 % (0.0-3.0); LARGE UNSTAINED CELL # 0.2 K/mm3 (0.0-0.4); LARGE UNSTAINED CELL % 2.7 % (0.0-4.0); LYMPH # 1.2 K/mm3 (1.5-4.5); LYMPH % 18.3 % (24.0-44.0); MEAN CORPUSCULAR HEMOGLOBIN 32.7 pg (27.0-33.0); MEAN CORPUSCULAR VOLUME 99.1 fl (80.0-96.0); MONO # 0.4 K/mm3 (0.0-0.8); MONO % 5.8 % (0.0-5.0); NEUTROPHILS # 4.6 K/mm3 (1.8-7.7); NEUTROPHILS % 70.5 % (36.0-66.0); PLATELET COUNT, AUTOMATED 247 k/mm3 (150-450); WHITE BLOOD COUNT 6.5 K/mm3 (4.0-10.0)
[2017-05-10 05:54] LABS: CALCIUM LEVEL 8.3 MG/DL (8.8-10.2); CREATININE FOR GFR 0.98 MG/DL (0.55-1.02); GLOMERULAR FILTRATION RATE 59.1 (>39); POTASSIUM SERUM 4.6 MEQ/L (3.5-5.1)
[2017-05-10] MEDS: HumaLOG INSULIN (NovoLOG) PER UNIT SC SCH ×4 (07:30→21:51)
[2017-05-10] MEDS: DOCUSATE SODIUM 100 MG CAP PO SCH ×2 (08:41→20:16)
[2017-05-10] MEDS: ASPIRIN 81 MG ENTERIC TAB PO SCH (08:41)
[2017-05-10] MEDS: MOM 30ML SUSPENSION UDC PO SCH (08:41)
[2017-05-10] MEDS: LISINOPRIL 20 MG TAB PO SCH (08:42)
[2017-05-10] MEDS: HEPARIN SOD (PORCINE) 5000 UNITS/ML VIAL SC SCH ×2 (08:42→20:09)
[2017-05-10] MEDS: PANTOPRAZOLE 40MG INJ (PROTONIX) (C9113) IV SCH (08:42)
[2017-05-10] MEDS: OCUVITE 1 TAB PO SCH (08:43)
--- NOTE | 2017-05-10 08:45 | REP ---
Clinical: Status post right lower lobectomy. Technique: PA and lateral. Comparison: 05/09/2017. Findings: Two right-sided chest tubes in stable position. Right apical pneumothorax similar to prior examination with 20 mm air gap. Small amount of subcutaneous emphysema along the right lateral chest wall. Visualized portions of the mediastinum and cardiac silhouette are stable. Right lower lobe opacities are unchanged and suggest elements of atelectasis as well as small pleural fluid. Left basilar atelectasis remains stable. Skeletal structures are intact. Impression: No significant change from prior examination. Continued left apical pneumothorax and basilar opacities/atelectasis (right greater than left). Signed by Juan Mora MD 05/10/2017 08:36 A
[2017-05-10] MEDS: ONDANSETRON 4MG/2ML VIAL (J2405) IV PRN (08:47)
[2017-05-10] MEDS: NORCO, ANEXSIA 5/325MG TABLET (HYDROcodone/ACETAMINOPHEN) PO PRN ×3 (13:54→23:35)
[2017-05-10] MEDS: PERCOCET 5MG/325MG TAB PO PRN (18:05)
[2017-05-11] MEDS: LEVALBUTEROL 1.25 MG/0.5 ML CONCENTRATE NEB NEB SCH ×4 (01:21→20:03)
[2017-05-11] MEDS: KETOROLAC 30 MG/ML VIAL (J1885) IV SCH ×2 (02:13→08:48)
[2017-05-11] MEDS: PERCOCET 5MG/325MG TAB PO PRN ×3 (02:23→14:13)
[2017-05-11 05:30] VITALS: BP 125/59
[2017-05-11] MEDS: LEVOTHYROXINE 25MCG TABLET (0.025MG) PO SCH (05:39)
[2017-05-11 06:10] LABS: BASO % 0.5 % (0.0-1.0); EOS # 0.1 K/mm3 (0.0-0.50); EOS % 2.8 % (0.0-3.0); LARGE UNSTAINED CELL # 0.1 K/mm3 (0.0-0.4); LARGE UNSTAINED CELL % 2.4 % (0.0-4.0); LYMPH # 1.3 K/mm3 (1.5-4.5); LYMPH % 25.6 % (24.0-44.0); MEAN CORPUSCULAR HEMOGLOBIN 32.9 pg (27.0-33.0); MEAN CORPUSCULAR HGB CONC 34.5 g/dl (32.0-36.5); MEAN CORPUSCULAR VOLUME 95.4 fl (80.0-96.0); MONO # 0.3 K/mm3 (0.0-0.8); MONO % 6.4 % (0.0-5.0); NEUTROPHILS # 3.1 K/mm3 (1.8-7.7); NEUTROPHILS % 62.3 % (36.0-66.0); PLATELET COUNT, AUTOMATED 237 k/mm3 (150-450); RED CELL DISTRIBUTION WIDTH 13.9 % (11.5-14.5); WHITE BLOOD COUNT 4.9 K/mm3 (4.0-10.0)
[2017-05-11 06:28] LABS: CALCIUM LEVEL 8.2 MG/DL (8.8-10.2); CREATININE FOR GFR 0.98 MG/DL (0.55-1.02); GLOMERULAR FILTRATION RATE 59.1 (>39); POTASSIUM SERUM 4.2 MEQ/L (3.5-5.1)
[2017-05-11] MEDS: HumaLOG INSULIN (NovoLOG) PER UNIT SC SCH ×4 (07:07→20:49)
[2017-05-11 08:00] VITALS: BP 152/68
[2017-05-11] MEDS: HEPARIN SOD (PORCINE) 5000 UNITS/ML VIAL SC SCH ×2 (08:47→20:49)
[2017-05-11] MEDS: PANTOPRAZOLE 40MG INJ (PROTONIX) (C9113) IV SCH (08:47)
[2017-05-11] MEDS: ONDANSETRON 4MG/2ML VIAL (J2405) IV PRN (08:48)
[2017-05-11] MEDS: DOCUSATE SODIUM 100 MG CAP PO SCH ×2 (08:48→20:49)
[2017-05-11] MEDS: ASPIRIN 81 MG ENTERIC TAB PO SCH (08:49)
[2017-05-11] MEDS: OCUVITE 1 TAB PO SCH (08:49)
[2017-05-11] MEDS: LISINOPRIL 20 MG TAB PO SCH (08:49)
[2017-05-11] MEDS: MOM 30ML SUSPENSION UDC PO SCH (08:55)
--- NOTE | 2017-05-11 09:06 | IPN ---
DATE OF SERVICE: 05/10/2017 This is postoperative day #4 for Ms. Ingram. Her pain is being well controlled, and she had a bowel movement today. She is not nauseated today, as she was yesterday. Her vital signs show a maximum temperature (Tmax) of 98.6 with a heart rate that ranges between 77 and 80 in a sinus rhythm. Respiratory rate of 18-20 without the use of accessory muscles, who is 95% saturation on 3 liters nasal cannula, and whose blood pressure is ranging between 129/59 to 105/52. Her intake and output over the past 24 hours is recorded at 1764 in and 1925 out, for a negativity of 160 mL. She has put out 150 mL out of the chest tube, and there is no air leak. She weighs 91.9 kg today compared to 90.9 kg yesterday. She has taken in 1620 mL in by mouth intake. On physical examination, her lungs show normal vesicular sounds, which are equal on either side. Percussion note is full to the diaphragm. Cardiac examination is without murmurs, clicks, gallops, or rubs. I cannot feel her point of maximum impulse (PMI). S1 and S2 are normal. Abdomen is soft and nontender. Bowel sounds are positive. There is no hepatomegaly. No costovertebral angle (CVA) tenderness. Extremities show no pretibial edema. No calf tenderness. No differential swelling of the upper extremities. Skin is warm, dry, and perfused without cyanosis or mottling, including that of the nail beds and the knees. Neck is supple. There is no jugular venous distention. No subcutaneous emphysema. Trachea is midline. Mouth shows her mucous membranes to be pink and moist. Lips and commissures without lesions. There is no thrush. Eyes show her pupils to be equal and reactive. Extraocular movements intact. Sclerae anicteric. Neurologic shows II-XII intact, along with gross motor and gross sensation intact. Gait is not tested. Psychiatric showed her to be awake and alert, oriented times three with appropriate mood and affect and conversational. Her white count today is 6.5 with a hemoglobin and hematocrit of 11.0 and 33.5, essentially unchanged from yesterday, with a platelet count of 247 and stable. Differential shows 70% neutrophils, 18% lymphocytes, 5% monocytes. There are no immature forms. No toxic granulations. Her electrolytes are normal with a BUN and creatinine of 23 and 0.98, a glucose of 91, and a calcium 8.3. Her chest x-ray today shows a continued apical air cap. There are no infiltrates. Costophrenic angle is sharp, and the chest tubes are in good place. IMPRESSION: 1. Stage I A, [id number] adenocarcinoma well differentiated. 2. Postoperative day #4, status post right lower lobectomy. 3. Hypertension. 4. Diabetes. 5. Coronary artery disease. 6. Hypothyroidism. 7. Chronic obstructive pulmonary disease (COPD). PLAN AND DISCUSSION: Will wean her oxygen (O2) today. Will also wean her epidural and discontinue her Curran and plan for her discharge in the morning.
--- NOTE | 2017-05-11 09:06 | REP ---
Clinical: Status post right lower lobectomy. Technique: PA and lateral. Comparison: 05/10/2017. Findings: Previously noted right-sided chest tubes have been removed. Residual right hydropneumothorax is essentially unchanged along with basilar atelectasis and small amount of subcutaneous emphysema along the right lateral chest wall. The left hemithorax appears relatively well aerated although subtle basilar atelectasis cannot be excluded. Skeletal structures are intact. Impression: 1. Right-sided chest tubes removed. 2. Residual right hydropneumothorax including air-fluid level, right basilar atelectasis, and subcutaneous emphysema. Signed by Juan Mora MD 05/11/2017 08:17 A
[2017-05-11 11:49] VITALS: BP 152/70
[2017-05-11] MEDS ORDERED: FUROSEMIDE 40 MG/4 ML VIAL (J1940) IV ONE (12:00)
[2017-05-11 16:00] VITALS: BP 168/78
[2017-05-11] MEDS: NORCO, ANEXSIA 5/325MG TABLET (HYDROcodone/ACETAMINOPHEN) PO PRN (17:09)
[2017-05-11 18:00] VITALS: BP 138/74
[2017-05-11 20:03] VITALS: BP 145/67
[2017-05-12] VITALS: BP 142/81
[2017-05-12] MEDS: LEVALBUTEROL 1.25 MG/0.5 ML CONCENTRATE NEB NEB SCH ×3 (01:44→13:21)
[2017-05-12 04:00] VITALS: BP 150/86
[2017-05-12 05:25] LABS: BASO % 0.5 % (0.0-1.0); EOS # 0.1 K/mm3 (0.0-0.50); EOS % 2.4 % (0.0-3.0); LARGE UNSTAINED CELL # 0.1 K/mm3 (0.0-0.4); LARGE UNSTAINED CELL % 2.6 % (0.0-4.0); LYMPH % 19.4 % (24.0-44.0); MEAN CORPUSCULAR HEMOGLOBIN 32.6 pg (27.0-33.0); MEAN CORPUSCULAR HGB CONC 34.2 g/dl (32.0-36.5); MEAN CORPUSCULAR VOLUME 95.3 fl (80.0-96.0); MONO # 0.3 K/mm3 (0.0-0.8); MONO % 5.5 % (0.0-5.0); NEUTROPHILS # 3.7 K/mm3 (1.8-7.7); NEUTROPHILS % 69.6 % (36.0-66.0); PLATELET COUNT, AUTOMATED 270 k/mm3 (150-450); RED CELL DISTRIBUTION WIDTH 13.8 % (11.5-14.5); WHITE BLOOD COUNT 5.2 K/mm3 (4.0-10.0)
[2017-05-12 05:40] LABS: ANION GAP 9 MEQ/L (8-16); BLOOD UREA NITROGEN 19 MG/DL (7-18); CALCIUM LEVEL 8.5 MG/DL (8.8-10.2); CARBON DIOXIDE LEVEL 30 MEQ/L (21-32); CHLORIDE LEVEL 103 MEQ/L (98-107); CREATININE FOR GFR 0.81 MG/DL (0.55-1.02); GLOMERULAR FILTRATION RATE > 60.0 (>39); GLUCOSE, FASTING 99 MG/DL (83-110); POTASSIUM SERUM 3.9 MEQ/L (3.5-5.1); SODIUM LEVEL 142 MEQ/L (136-145)
--- NOTE | 2017-05-12 05:58 | IPN ---
DATE: 05/11/2017 This is now the fifth postoperative day for Mrs. Ingram. My intentions were to discharge her home today, however, she is feeling more nauseated and weak. She had increased pain last night after weaning the epidural. She is now responding to the Percocet when it was changed from [place]. I will therefore keep her another day. Furthermore she is swollen with pretibial edema and I will diurese her. Her vital signs, however, are stable with a T-max of 98.1 with a heart rate that ranges between 81 and 75 in a sinus rhythm, respiratory rate of 18-20 without the use of accessory muscles who is 92% saturated on 1 liter nasal cannula. On room air, she desaturated to 86%. Her blood pressure is ranging between 152/78 to 122/57. Her intake and output over the past 24 hours has been recorded as 922 in and 785 out for a positivity of 157 mL. Her chest tube was removed yesterday. She has taken in 870 mL in oral intake. She weighs 97.2 kg today compared to 98 kg yesterday. I suspect today's weight is a bit spurious and I cannot explain that weight change from her inputs and outputs. On physical examination, her lungs show equal breath sounds on either side and they had normal vesicular sounds. She has some occasional rhonchi which clear with coughing. Percussion note is full to the diaphragm. Cardiac exam is without murmurs, clicks, gallops or rubs. I cannot feel her PMI. S1 and S2 are normal. Abdomen is soft, nontender, bowel sounds are positive. There is no hepatomegaly. No CVA tenderness. Extremities show 1+ pretibial edema. No calf tenderness. No differential swelling of the upper extremities. Skin is warm, dry and perfused without cyanosis or mottling including that of the nail beds and knees. Neck is supple. There is no jugular venous distention. No subcutaneous emphysema. Trachea is midline. Mouth shows her mucous membranes to be pink and moist. Lips and commissures are without lesions. No thrush. Eyes show her pupils to be equal and reactive. Extraocular motor intact. Sclera anicteric. Neuro shows II through XII intact with gross motor and gross sensation intact. Gait is also intact. Psychiatric shows her to be awake and alert, oriented times three with appropriate mood and affect and conversational. Her white count today is 4.9 with hemoglobin and hematocrit of 10.5 and 30.4 slightly down from 11.0 and 33.5 yesterday. Bilirubin count is 237 and differential shows 62% neutrophils, 25% lymphocytes, 6% monocytes. There are no immature forms. No toxic granulations. Her electrolytes are normal with a BUN and creatinine of 24 and 0.98 unchanged from yesterday with a glucose of 97 and a calcium of 8.2. Her chest x-ray today shows the continued apical air space in the upper hemithorax on the right side. Costophrenic angle is sharp and I see no other infiltrates. IMPRESSION: 1. Stage 1A [id number] adenocarcinoma well differentiated. Previously known as bronchoalveolar carcinoma. 2. Postoperative day #5 status post right lower lobectomy. 3. Hypertension. 4. Diabetes. 5. Coronary artery disease. 6. Hypothyroidism. 7. Chronic obstructive pulmonary disease (COPD). 8. Nausea and malaise. PLAN AND DISCUSSION: I will diurese her today. As noted above, I will keep her in the hospital another 24 hours. She is not yet ready to go home and be functional on her own.
[2017-05-12] MEDS: LEVOTHYROXINE 25MCG TABLET (0.025MG) PO SCH (06:07)
[2017-05-12] MEDS: NORCO, ANEXSIA 5/325MG TABLET (HYDROcodone/ACETAMINOPHEN) PO PRN (06:13)
[2017-05-12] MEDS: HumaLOG INSULIN (NovoLOG) PER UNIT SC SCH ×2 (07:30→12:09)
[2017-05-12 08:00] VITALS: BP 160/71
--- NOTE | 2017-05-12 08:07 | REP ---
PA and lateral chest: Comparison is 05/11/2017. The two right thoracotomy tubes have been removed. This is unchanged. There is a right hydropneumothorax, unchanged. There is atelectasis inferiorly in the right lung, unchanged. There is subcutaneous edema along the right lateral chest wall, unchanged. Left lung is clear. Cardiac size is normal. Impression: There is no significant interval change. Signed by Jose D Guevara MD 05/12/2017 07:58 A
[2017-05-12 08:48] VITALS: BP 160/71
[2017-05-12] MEDS: PANTOPRAZOLE 40MG INJ (PROTONIX) (C9113) IV SCH (08:48)
[2017-05-12] MEDS: HEPARIN SOD (PORCINE) 5000 UNITS/ML VIAL SC SCH (08:48)
[2017-05-12] MEDS: LISINOPRIL 20 MG TAB PO SCH (08:48)
[2017-05-12] MEDS: MOM 30ML SUSPENSION UDC PO SCH (08:48)
[2017-05-12] MEDS: DOCUSATE SODIUM 100 MG CAP PO SCH (08:48)
[2017-05-12] MEDS: OCUVITE 1 TAB PO SCH (08:48)
[2017-05-12] MEDS: ASPIRIN 81 MG ENTERIC TAB PO SCH (08:49)
[2017-05-12 12:19] VITALS: O2SAT 84
[2017-05-12 12:25] VITALS: O2SAT 90
--- NOTE | 2017-05-12 16:06 | DSES ---
DATE OF ADMISSION: 05/06/2017 DATE OF DISCHARGE: 05/12/2017 DISCHARGE DIAGNOSES: 1. Stage 1A, [id number] adenocarcinoma well differentiated. 2. Postoperative day #6 status post right lower lobectomy. 3. Hypertension. 4. Diabetes. 5. Coronary artery disease. 6. Hypothyroidism. 7. Chronic obstructive pulmonary artery disease (COPD). 8. Nausea and malaise. HOSPITAL COURSE: Patient is a 72-year-old white female who was found to have biopsy proven adenocarcinoma of the right lower lobe. She was discovered to have a right lower lobe lesion approximately 2 years ago when she was brought to the hospital very short of breath and it was at that point thought to have exacerbation of chronic obstructive pulmonary artery disease (COPD). She was found to have a lesion during that admission and had been followed for the past 2 years. It has increased in size. She is a former smoker having smoked a pack of Alvord's since the age of approximately 13, but quit in 2001. She does complain of chronic shortness of breath while climbing a flight of stairs and walking long distances. Her medical history was significant for diabetes, hypothyroidism, and rheumatoid arthritis. She was on methotrexate which I discontinued prior to surgery. She also has underlying COPD with an FEV1 which was 1.34 which is 65% of predicated and a diffusion capacity which was 52% of predicated. She was therefore taken to the operating room where she underwent a right lower lobectomy. Final pathology was at first confusing and had to have the specimen re-cut. At first we thought that she has satellite lesion making her a T3 lesion, but it was judged to be a microscopic deposit. She was therefore officially staged at stage 1A with a T1a tumor. It is well differentiated adenocarcinoma which was forming now as bronchoalveolar carcinoma. She will be presented at tumor conference for further discussion. At this point and time, we do not intend to offer her chemotherapy unless the discussion at tumor conference with oncology indicates differently. She had some nausea and vomiting during her hospital course which mostly resolved although the did feel the nausea on the day of discharge. I did personally walk her around the floor circuit and she desaturated to 84% all on room air. She is being discharged today on her home medications which include: - ELLIPTA one puff every day 62.5/25 mcg - aspirin 81 mg every day - calcium citrate 1000 mg twice a day - Synthroid 50 mcg every day - lisinopril 20 mg every day - metformin 500 mg twice a day She will also be discharged on Percocet 5/325 every 4 hours as needed pain and she will be send home on oxygen with portability at 1 liter per minute. I will see her back in followup in 1 week in the office. Her discharge hemoglobin and hematocrit were 11.3 and 32.9 with a platelet count of 270. Discharge electrolytes were normal with a BUN and creatinine of 19 and 0.81. Her chest x-ray showed her lung fully expanded to chest wall except for small apical airspace on the right side.
== END 2017-05-12 13:32 | disposition home or self-care (01) | DRG 165 ==
LOC: M OR 06:53 → M ICU 15:15 → M PCU 05-07 22:55
PROVIDERS: ADMIT Thoracic Surgery (Cardiothoracic Vascular Surgery); ATTEND Thoracic Surgery (Cardiothoracic Vascular Surgery)
PROC: 0BNF0ZZ Release Right Lower Lung Lobe, Open Approach (ICD-10-PCS; 2017-05-06)
PROC: 07T70ZZ Resection of Thorax Lymphatic, Open Approach (ICD-10-PCS; 2017-05-06)
PROC: 0BBF0ZZ Excision of Right Lower Lung Lobe, Open Approach (ICD-10-PCS; principal; 2017-05-06 09:00)
DX: C34.31 Malignant neoplasm of lower lobe, right bronchus or lung (principal); E11.9 Type 2 diabetes mellitus without complications; I10 Essential (primary) hypertension; I25.10 Atherosclerotic heart disease of native coronary artery without angina pectoris; E03.9 Hypothyroidism, unspecified; J44.9 Chronic obstructive pulmonary disease, unspecified; Z87.891 Personal history of nicotine dependence; Z79.899 Other long term (current) drug therapy; Z79.82 Long term (current) use of aspirin; Z79.84 Long term (current) use of oral hypoglycemic drugs

== ENCOUNTER → 2017-05-19 | Outpatient (CLI) | payer OTHER ==
--- NOTE | 2017-05-19 09:33 | REP ---
PA and lateral chest: Comparisons 05/12/2017. There is a small right pneumothorax and a small volume of fluid in the right pleural space compatible with a persisting right hydropneumothorax. The volume of subcutaneous emphysema along the right lateral chest wall has significantly decreased. Right lung is otherwise clear. Left lung is clear. Cardiac size is normal. The ezequiel, mediastinum, bony thorax are unremarkable. Signed by Jose D Guevara MD 05/19/2017 09:25 A
== END ==
LOC: M SMT 08:12
PROVIDERS: ATTEND Thoracic Surgery (Cardiothoracic Vascular Surgery)
DX: C34.11 Malignant neoplasm of upper lobe, right bronchus or lung (principal)

== ENCOUNTER → 2017-05-29 | Outpatient (CLI) | payer OTHER ==
--- NOTE | 2017-05-29 09:23 | REP ---
PA and lateral chest: Comparison is 05/19/2017. There is a right pleural effusion effacing the right costophrenic angle and extending in the right pleural space cephalad to include the apex of the right hemithorax. No pneumothorax is identified. The right lung is otherwise clear on plain films. The left lung is clear. Cardiac size is normal. The ezequiel, mediastinum, and bony thorax are. Impression: Circumferential right pleural effusion. No pneumothorax. Signed by Jose D Guevara MD 05/29/2017 09:15 A
== END ==
LOC: M SMT 08:19
PROVIDERS: ATTEND Thoracic Surgery (Cardiothoracic Vascular Surgery)
DX: C34.11 Malignant neoplasm of upper lobe, right bronchus or lung (principal); J90 Pleural effusion, not elsewhere classified

== ENCOUNTER → 2017-08-13 | Outpatient (REF) | payer OTHER | LOC: M SFHCWAGY 11:29 | PROVIDERS: ATTEND Nurse Practitioner Family | DX: R30.0 Dysuria (principal) ==

== ENCOUNTER 2018-01-23 06:33 | Day surgery (SDC) | payer OTHER ==
[2018-01-23] MEDS: NS 1,000 ML IV (06:30)
[2018-01-23] MEDS ORDERED: PROPOFOL 200 MG/20 ML VIAL As Ordered ×2 (08:22)
== END 2018-01-23 08:25 | disposition home or self-care (01) ==
LOC: M OPP 06:33
DX: Z12.11 Encounter for screening for malignant neoplasm of colon (principal); Z86.010 Personal history of colon polyps; K64.9 Unspecified hemorrhoids; D12.3 Benign neoplasm of transverse colon; D12.0 Benign neoplasm of cecum; K57.30 Diverticulosis of large intestine without perforation or abscess without bleeding; E11.9 Type 2 diabetes mellitus without complications; I10 Essential (primary) hypertension; E78.5 Hyperlipidemia, unspecified; E03.9 Hypothyroidism, unspecified; K21.9 Gastro-esophageal reflux disease without esophagitis; M06.9 Rheumatoid arthritis, unspecified; J44.9 Chronic obstructive pulmonary disease, unspecified; Z79.82 Long term (current) use of aspirin; Z79.899 Other long term (current) drug therapy; Z88.0 Allergy status to penicillin; Z88.8 Allergy status to other drugs, medicaments and biological substances; Z90.711 Acquired absence of uterus with remaining cervical stump; Z85.118 Personal history of other malignant neoplasm of bronchus and lung; Z80.3 Family history of malignant neoplasm of breast; Z80.7 Family history of other malignant neoplasms of lymphoid, hematopoietic and related tissues
CPT/HCPCS: 45385

== ENCOUNTER → 2018-04-21 | Outpatient (CLI) | payer OTHER | LOC: M WHC 07:53 | DX: Z12.31 Encounter for screening mammogram for malignant neoplasm of breast (principal); Z92.89 Personal history of other medical treatment; Z80.3 Family history of malignant neoplasm of breast | CPT/HCPCS: 77067 ==

== ENCOUNTER → 2018-05-11 | Outpatient (REF) | payer OTHER ==
[2018-05-11 15:58] LABS: URIC ACID 6.4 MG/DL (2.6-6.0)
[2018-05-11 15:58] LABS: C REACTIVE PROTEIN QUANTITATIV 0.59 MG/DL (0.00-0.30); RHEUMATOID FACTOR QUANT < 10.0 IU/ML (<15.0)
[2018-05-11 16:03] LABS: ERYTHROCYTE SEDIMENTATION RATE 45 mm/hr (0-30)
[2018-05-14 00:06] LABS: ANA (HEP2) Negative (.)
[2018-05-14 00:06] LABS: CYCLIC CITRULLINATED PEPTIDE > 250 units (0-19)
== END ==
LOC: M SFHCLERA 09:01
DX: M06.9 Rheumatoid arthritis, unspecified (principal)
CPT/HCPCS: 84550

== ENCOUNTER → 2018-05-11 | Outpatient (CLI) | payer OTHER | LOC: M LRY 09:07 | DX: M19.071 Primary osteoarthritis, right ankle and foot (principal); M06.9 Rheumatoid arthritis, unspecified; S90.851S Superficial foreign body, right foot, sequela; M79.89 Other specified soft tissue disorders; X58.XXXS Exposure to other specified factors, sequela | CPT/HCPCS: 73630; 84550 ==

== ENCOUNTER → 2018-09-07 | Outpatient (CLI) | payer OTHER ==
[~2018-09-07] MED LIST changes: +CRAN125T PO; +LOSA100T50 PO; +METH2.5T48 PO; -METH2.5TA PO; +MULT1TAB10 PO; +VENTAER INH
[2018-09-07 10:08] LABS: BASO % 0.6 % (0.0-1.0); EOS # 0.1 10^3/uL (0.0-0.50); EOS % 1.8 % (0.0-3.0); HEMATOCRIT 40.1 % (36.0-47.0); LYMPH # 1.8 10^3/uL (1.5-4.5); LYMPH % 27.3 % (24.0-44.0); MEAN CORPUSCULAR HEMOGLOBIN 30.7 pg (27.0-33.0); MEAN CORPUSCULAR HGB CONC 32.4 g/dl (32.0-36.5); MEAN CORPUSCULAR VOLUME 94.6 fl (80.0-96.0); MONO # 0.6 10^3/uL (0.0-0.8); MONO % 8.3 % (0.0-5.0); NEUTROPHILS # 4.1 10^3/uL (1.8-7.7); NEUTROPHILS % 60.2 % (36.0-66.0); PLATELET COUNT, AUTOMATED 313 10^3/uL (150-450); RED BLOOD COUNT 4.24 10^6/uL (4.00-5.40); WHITE BLOOD COUNT 6.8 10^3/uL (4.0-10.0)
[2018-09-07 10:34] LABS: ERYTHROCYTE SEDIMENTATION RATE 46 mm/hr (0-30)
[2018-09-07 10:37] LABS: ALBUMIN 3.4 GM/DL (3.2-5.2); BILIRUBIN,TOTAL 0.3 MG/DL (0.2-1.0); C REACTIVE PROTEIN QUANTITATIV 1.09 MG/DL (0.00-0.30); CALCIUM LEVEL 9.4 MG/DL (8.8-10.2); CREATININE FOR GFR 0.99 MG/DL (0.55-1.30); GLOMERULAR FILTRATION RATE 58.2 (>39); POTASSIUM SERUM 4.9 MEQ/L (3.5-5.1); TOTAL PROTEIN 7.3 GM/DL (6.4-8.2)
== END ==
LOC: M WUC 08:08
PROVIDERS: ATTEND Internal Medicine Rheumatology
DX: M06.9 Rheumatoid arthritis, unspecified (principal)

== ENCOUNTER → 2018-10-19 | Outpatient (CLI) | payer MEDICARE ==
[2018-10-19 09:36] LABS: BASO # 0.1 10^3/uL (0.0-0.2); BASO % 1.1 % (0.0-1.0); EOS # 0.2 10^3/uL (0.0-0.50); EOS % 2.4 % (0.0-3.0); HEMATOCRIT 40.4 % (36.0-47.0); LYMPH # 1.8 10^3/uL (1.5-4.5); LYMPH % 27.9 % (24.0-44.0); MEAN CORPUSCULAR HEMOGLOBIN 31.5 pg (27.0-33.0); MEAN CORPUSCULAR HGB CONC 32.2 g/dl (32.0-36.5); MEAN CORPUSCULAR VOLUME 97.8 fl (80.0-96.0); MONO # 0.6 10^3/uL (0.0-0.8); MONO % 8.7 % (0.0-5.0); NEUTROPHILS # 3.8 10^3/uL (1.8-7.7); NEUTROPHILS % 57.9 % (36.0-66.0); PLATELET COUNT, AUTOMATED 319 10^3/uL (150-450); RED BLOOD COUNT 4.13 10^6/uL (4.00-5.40); WHITE BLOOD COUNT 6.6 10^3/uL (4.0-10.0)
[2018-10-19 09:57] LABS: ALBUMIN 3.7 GM/DL (3.2-5.2); BILIRUBIN,TOTAL 0.3 MG/DL (0.2-1.0); CALCIUM LEVEL 8.7 MG/DL (8.8-10.2); CHOLESTEROL RISK RATIO 4.409 (<5); CREATININE FOR GFR 1.01 MG/DL (0.55-1.30); GLOMERULAR FILTRATION RATE 56.9 (>39); POTASSIUM SERUM 4.9 MEQ/L (3.5-5.1); TOTAL PROTEIN 7.7 GM/DL (6.4-8.2)
[2018-10-19 10:00] LABS: HEMOGLOBIN A1c 7.2 %
== END ==
LOC: M WUC 08:04
PROVIDERS: ATTEND Family Medicine
DX: E11.69 Type 2 diabetes mellitus with other specified complication (principal)

== ENCOUNTER → 2018-12-07 | Outpatient (CLI) | payer MEDICARE ==
[~2018-12-07] MED LIST changes: -ASPI1TAB PO; +ASPI81TA26 PO; +PRED-351 PO; -PRED10TA PO
[2018-12-07 09:30] LABS: ALBUMIN 3.6 GM/DL (3.2-5.2); BILIRUBIN,TOTAL 0.3 MG/DL (0.2-1.0); C REACTIVE PROTEIN QUANTITATIV 0.96 MG/DL (0.00-0.30); CALCIUM LEVEL 9.3 MG/DL (8.8-10.2); CREATININE FOR GFR 0.97 MG/DL (0.55-1.30); GLOMERULAR FILTRATION RATE 59.6 (>39); POTASSIUM SERUM 4.9 MEQ/L (3.5-5.1); TOTAL PROTEIN 7.3 GM/DL (6.4-8.2)
[2018-12-07 09:38] LABS: BASO # 0.1 10^3/uL (0.0-0.2); BASO % 0.9 % (0.0-1.0); EOS # 0.1 10^3/uL (0.0-0.50); EOS % 2.2 % (0.0-3.0); HEMATOCRIT 37.6 % (36.0-47.0); HEMOGLOBIN 11.9 g/dl (12.0-15.5); LYMPH # 1.7 10^3/uL (1.5-4.5); LYMPH % 26.5 % (24.0-44.0); MEAN CORPUSCULAR HEMOGLOBIN 31.6 pg (27.0-33.0); MEAN CORPUSCULAR HGB CONC 31.6 g/dl (32.0-36.5); MONO # 0.6 10^3/uL (0.0-0.8); MONO % 9.5 % (0.0-5.0); NEUTROPHILS # 3.7 10^3/uL (1.8-7.7); NEUTROPHILS % 58.7 % (36.0-66.0); PLATELET COUNT, AUTOMATED 295 10^3/uL (150-450); RED BLOOD COUNT 3.76 10^6/uL (4.00-5.40); WHITE BLOOD COUNT 6.3 10^3/uL (4.0-10.0)
[2018-12-07 10:46] LABS: ERYTHROCYTE SEDIMENTATION RATE 52 mm/hr (0-30)
== END ==
LOC: M WUC 08:06
PROVIDERS: ATTEND Internal Medicine Rheumatology
DX: M06.9 Rheumatoid arthritis, unspecified (principal)

== ENCOUNTER → 2019-01-19 | Outpatient (CLI) | payer MEDICARE ==
[2019-01-19 13:12] LABS: HEMOGLOBIN A1c 6.5 %
[2019-01-19 13:33] LABS: CREATININE, URINE 15.8 MG/DL; MALB URINE SIEMENS < 5.0 MG/L; MAU/CREAT RATIO 31.6 MCG/MG (0.0-30.0)
== END ==
LOC: M WUC 08:32
PROVIDERS: ATTEND Family Medicine
DX: E11.69 Type 2 diabetes mellitus with other specified complication (principal)

== ENCOUNTER → 2019-04-22 | Outpatient (CLI) | payer MEDICARE ==
--- NOTE | 2019-04-22 11:22 | REPMRS ---
Patient History The patient states she had a clinical breast exam in 03/2019. Patient is postmenopausal and has history of lung cancer at age 72. Family history of breast cancer at age 50 in sister, breast cancer at age 47 in daughter, colorectal cancer at age 81 in brother. Benign stereotatic breast biopsy of the right breast, 1996. No Hormone Replacement Therapy Digital Woman Screen Mammo: April 22, 2019 - Exam #: [id number] Bilateral CC and MLO view(s) were taken. Technologist: Marzena Townsend, Technologist Prior study comparison: April 21, 2018, bilateral digital woman screen mammo performed at [facility]. April 24, 2017, digital woman screen mammo performed at [facility]. April 15, 2016, digital woman screen mammo performed at [facility]. FINDINGS: There are scattered fibroglandular densities. There has been no change in the appearance of the mammogram from the prior studies. There is a mild amount of scattered fibroglandular density which is fairly symmetric. There is no interval development of dominant mass, architectural distortion, or grouped microcalcification suggestive of malignancy. 3-D tomosynthesis shows no additional findings. Assessment: BI-RADS/ACR category 1 mammogram. Negative Mammogram. Recommendation Routine screening mammogram of both breasts in 1 year (for women over age 40). This patient's Lifetime Breast Cancer Risk is estimated at 6.4 %. This mammogram was interpreted with the aid of an FDA-approved computer-aided dectection system. Electronically Signed By: Ovi Jeffers MD 04/22/19 [id number]
== END ==
LOC: M WHC 08:26
PROVIDERS: ATTEND Nurse Practitioner Family
DX: Z01.419 Encounter for gynecological examination (general) (routine) without abnormal findings (principal); Z12.31 Encounter for screening mammogram for malignant neoplasm of breast; Z78.0 Asymptomatic menopausal state; Z85.118 Personal history of other malignant neoplasm of bronchus and lung; Z80.3 Family history of malignant neoplasm of breast; Z80.0 Family history of malignant neoplasm of digestive organs; Z86.018 Personal history of other benign neoplasm
CPT/HCPCS: 77063; 77067; G0101

== ENCOUNTER → 2019-06-07 | Outpatient (CLI) | payer MEDICARE ==
[2019-06-07 13:10] LABS: BASO # 0.1 10^3/uL (0.0-0.2); BASO % 0.9 % (0.0-1.0); EOS # 0.1 10^3/uL (0.0-0.5); EOS % 1.6 % (0.0-3.0); HEMATOCRIT 41.1 % (36.0-47.0); HEMOGLOBIN 13.3 g/dl (12.0-15.5); LYMPH % 28.2 % (24.0-44.0); MEAN CORPUSCULAR HEMOGLOBIN 32.7 pg (27.0-33.0); MEAN CORPUSCULAR HGB CONC 32.4 g/dl (32.0-36.5); MONO # 0.6 10^3/uL (0.0-0.8); MONO % 8.9 % (0.0-5.0); NEUTROPHILS # 4.1 10^3/uL (1.5-8.5); PLATELET COUNT, AUTOMATED 297 10^3/uL (150-450); RED BLOOD COUNT 4.07 10^6/uL (4.00-5.40)
[2019-06-07 13:31] LABS: ALBUMIN 3.7 GM/DL (3.2-5.2); ALT/SGPT 33 U/L (12-78); BILIRUBIN,TOTAL 0.7 MG/DL (0.2-1.0); BLOOD UREA NITROGEN 13 MG/DL (7-18); C REACTIVE PROTEIN QUANTITATIV 0.81 MG/DL (0.00-0.30); CARBON DIOXIDE LEVEL 29 MEQ/L (21-32); CHLORIDE LEVEL 103 MEQ/L (98-107); CREATININE FOR GFR 0.96 MG/DL (0.55-1.30); GLOMERULAR FILTRATION RATE > 60.0 (>39); GLUCOSE, FASTING 94 MG/DL (70-100); POTASSIUM SERUM 4.5 MEQ/L (3.5-5.1); SODIUM LEVEL 138 MEQ/L (136-145); TOTAL PROTEIN 7.6 GM/DL (6.4-8.2)
[2019-06-07 13:55] LABS: ERYTHROCYTE SEDIMENTATION RATE 48 mm/hr (0-30)
== END ==
LOC: M LAB 12:19
PROVIDERS: ATTEND Internal Medicine Rheumatology
DX: M06.9 Rheumatoid arthritis, unspecified (principal)

== ENCOUNTER → 2019-07-02 | Outpatient (CLI) | payer MEDICARE ==
[2019-07-02 09:47] LABS: CREATININE FOR GFR 0.97 MG/DL (0.55-1.30); GLOMERULAR FILTRATION RATE 59.4 (>39)
== END ==
LOC: M WUC 08:17
PROVIDERS: ATTEND Internal Medicine Pulmonary Disease
DX: J44.9 Chronic obstructive pulmonary disease, unspecified (principal)

== ENCOUNTER → 2019-07-19 | Outpatient (CLI) | payer MEDICARE ==
[2019-07-19 10:44] LABS: BASO # 0.1 10^3/uL (0.0-0.2); BASO % 0.8 % (0.0-1.0); EOS # 0.1 10^3/uL (0.0-0.5); EOS % 1.4 % (0.0-3.0); HEMATOCRIT 40.5 % (36.0-47.0); HEMOGLOBIN 13.1 g/dl (12.0-15.5); LYMPH # 1.7 10^3/uL (1.5-5.0); LYMPH % 26.6 % (24.0-44.0); MEAN CORPUSCULAR HEMOGLOBIN 32.3 pg (27.0-33.0); MEAN CORPUSCULAR HGB CONC 32.3 g/dl (32.0-36.5); MONO # 0.6 10^3/uL (0.0-0.8); MONO % 9.5 % (0.0-5.0); NEUTROPHILS # 3.8 10^3/uL (1.5-8.5); NEUTROPHILS % 60.7 % (36.0-66.0); PLATELET COUNT, AUTOMATED 301 10^3/uL (150-450); RED BLOOD COUNT 4.05 10^6/uL (4.00-5.40); WHITE BLOOD COUNT 6.2 10^3/uL (4.0-10.0)
[2019-07-19 11:07] LABS: HEMOGLOBIN A1c 6.2 %
[2019-07-19 11:21] LABS: ALBUMIN 3.7 GM/DL (3.2-5.2); ALT/SGPT 31 U/L (12-78); BILIRUBIN,TOTAL 0.5 MG/DL (0.2-1.0); BLOOD UREA NITROGEN 17 MG/DL (7-18); CALCIUM LEVEL 9.4 MG/DL (8.8-10.2); CARBON DIOXIDE LEVEL 26 MEQ/L (21-32); CHLORIDE LEVEL 106 MEQ/L (98-107); CHOLESTEROL LEVEL 207 MG/DL (<200); CHOLESTEROL RISK RATIO 4.704 (<5); CREATININE FOR GFR 0.91 MG/DL (0.55-1.30); GLOMERULAR FILTRATION RATE > 60.0 (>39); GLUCOSE, FASTING 91 MG/DL (70-100); HDL CHOLESTEROL 44 MG/DL (>40); LDL CHOLESTEROL 118 MG/DL (<100); NON-HDL-C 163 MG/DL; SODIUM LEVEL 139 MEQ/L (136-145); TOTAL PROTEIN 7.5 GM/DL (6.4-8.2); TRIGLYCERIDES LEVEL 227 MG/DL (<150)
== END ==
LOC: M LAB 08:14
PROVIDERS: ATTEND Family Medicine
DX: E11.69 Type 2 diabetes mellitus with other specified complication (principal); E55.9 Vitamin D deficiency, unspecified

== ENCOUNTER → 2019-12-15 | Outpatient (CLI) | payer MEDICARE ==
[2019-12-15 11:41] LABS: BASO # 0.1 10^3/uL (0.0-0.2); BASO % 0.8 % (0.0-1.0); EOS # 0.1 10^3/uL (0.0-0.5); EOS % 1.8 % (0.0-3.0); HEMATOCRIT 39.6 % (36.0-47.0); HEMOGLOBIN 12.7 g/dl (12.0-15.5); LYMPH # 1.7 10^3/uL (1.5-5.0); LYMPH % 26.8 % (24.0-44.0); MEAN CORPUSCULAR HEMOGLOBIN 32.2 pg (27.0-33.0); MEAN CORPUSCULAR HGB CONC 32.1 g/dl (32.0-36.5); MEAN CORPUSCULAR VOLUME 100.5 fl (80.0-96.0); MONO # 0.5 10^3/uL (0.0-0.8); MONO % 7.3 % (0.0-5.0); NEUTROPHILS # 3.9 10^3/uL (1.5-8.5); NEUTROPHILS % 62.3 % (36.0-66.0); PLATELET COUNT, AUTOMATED 278 10^3/uL (150-450); RED BLOOD COUNT 3.94 10^6/uL (4.00-5.40); WHITE BLOOD COUNT 6.3 10^3/uL (4.0-10.0)
[2019-12-15 11:49] LABS: ALBUMIN 3.5 GM/DL (3.2-5.2); BILIRUBIN,TOTAL 0.5 MG/DL (0.2-1.0); C REACTIVE PROTEIN QUANTITATIV 0.54 MG/DL (0.00-0.30); CALCIUM LEVEL 9.6 MG/DL (8.8-10.2); CREATININE FOR GFR 0.98 MG/DL (0.55-1.30); GLOMERULAR FILTRATION RATE 58.7 (>39); TOTAL PROTEIN 7.3 GM/DL (6.4-8.2)
[2019-12-15 12:05] LABS: ERYTHROCYTE SEDIMENTATION RATE 34 mm/hr (0-30)
== END ==
LOC: M PLALAB 08:27
PROVIDERS: ATTEND Internal Medicine
DX: M06.9 Rheumatoid arthritis, unspecified (principal)

== ENCOUNTER → 2020-01-19 | Outpatient (CLI) | payer MEDICARE ==
[2020-01-19 10:37] LABS: BASO # 0.1 10^3/uL (0.0-0.2); BASO % 0.8 % (0.0-1.0); EOS # 0.1 10^3/uL (0.0-0.5); EOS % 1.7 % (0.0-3.0); HEMATOCRIT 40.2 % (36.0-47.0); HEMOGLOBIN 12.9 g/dl (12.0-15.5); LYMPH # 1.7 10^3/uL (1.5-5.0); MEAN CORPUSCULAR HEMOGLOBIN 32.1 pg (27.0-33.0); MEAN CORPUSCULAR HGB CONC 32.1 g/dl (32.0-36.5); MONO # 0.7 10^3/uL (0.0-0.8); MONO % 10.3 % (0.0-5.0); NEUTROPHILS # 3.8 10^3/uL (1.5-8.5); NEUTROPHILS % 60.1 % (36.0-66.0); PLATELET COUNT, AUTOMATED 290 10^3/uL (150-450); RED BLOOD COUNT 4.02 10^6/uL (4.00-5.40); WHITE BLOOD COUNT 6.4 10^3/uL (4.0-10.0)
[2020-01-19 10:47] LABS: ALBUMIN 3.6 GM/DL (3.2-5.2); ALT/SGPT 34 U/L (12-78); BILIRUBIN,TOTAL 0.6 MG/DL (0.2-1.0); BLOOD UREA NITROGEN 18 MG/DL (7-18); CALCIUM LEVEL 9.3 MG/DL (8.8-10.2); CARBON DIOXIDE LEVEL 27 MEQ/L (21-32); CHLORIDE LEVEL 108 MEQ/L (98-107); CHOLESTEROL LEVEL 216 MG/DL (<200); CHOLESTEROL RISK RATIO 5.023 (<5); CREATININE FOR GFR 0.88 MG/DL (0.55-1.30); FREE T4 1.18 NG/DL (0.76-1.46); GLOMERULAR FILTRATION RATE > 60.0 (>39); GLUCOSE, FASTING 97 MG/DL (70-100); HDL CHOLESTEROL 43 MG/DL (>40); LDL CHOLESTEROL 128 MG/DL (<100); NON-HDL-C 173 MG/DL; POTASSIUM SERUM 4.9 MEQ/L (3.5-5.1); SODIUM LEVEL 141 MEQ/L (136-145); TOTAL PROTEIN 7.3 GM/DL (6.4-8.2); TRIGLYCERIDES LEVEL 227 MG/DL (<150)
[2020-01-19 11:13] LABS: HEMOGLOBIN A1c 6.3 %
[2020-01-19 11:24] LABS: CREATININE, URINE < 13.0 MG/DL; MALB URINE SIEMENS < 5.0 MG/L
== END ==
LOC: M PLALAB 08:25
PROVIDERS: ATTEND Family Medicine
DX: E11.69 Type 2 diabetes mellitus with other specified complication (principal); E03.9 Hypothyroidism, unspecified

== ENCOUNTER → 2020-04-21 | Outpatient (CLI) | payer MEDICARE ==
[2020-04-21 12:43] LABS: BASO # 0.1 10^3/uL (0.0-0.2); BASO % 0.8 % (0.0-1.0); EOS # 0.1 10^3/uL (0.0-0.5); EOS % 1.9 % (0.0-3.0); HEMATOCRIT 40.5 % (36.0-47.0); HEMOGLOBIN 12.9 g/dl (12.0-15.5); LYMPH # 1.7 10^3/uL (1.5-5.0); LYMPH % 27.8 % (24.0-44.0); MEAN CORPUSCULAR HEMOGLOBIN 32.5 pg (27.0-33.0); MEAN CORPUSCULAR HGB CONC 31.9 g/dl (32.0-36.5); MONO # 0.7 10^3/uL (0.0-0.8); MONO % 10.7 % (0.0-5.0); NEUTROPHILS # 3.6 10^3/uL (1.5-8.5); NEUTROPHILS % 57.7 % (36.0-66.0); PLATELET COUNT, AUTOMATED 270 10^3/uL (150-450); RED BLOOD COUNT 3.97 10^6/uL (4.00-5.40); WHITE BLOOD COUNT 6.2 10^3/uL (4.0-10.0)
[2020-04-21 12:50] LABS: ALBUMIN 3.7 GM/DL (3.2-5.2); BILIRUBIN,TOTAL 0.5 MG/DL (0.2-1.0); C REACTIVE PROTEIN QUANTITATIV 0.54 MG/DL (0.00-0.30); CALCIUM LEVEL 9.1 MG/DL (8.8-10.2); CREATININE FOR GFR 1.01 MG/DL (0.55-1.30); GLOMERULAR FILTRATION RATE 56.6 (>39); POTASSIUM SERUM 4.5 MEQ/L (3.5-5.1); TOTAL PROTEIN 7.6 GM/DL (6.4-8.2)
[2020-04-21 13:40] LABS: ERYTHROCYTE SEDIMENTATION RATE 39 mm/hr (0-30)
== END ==
LOC: M PLALAB 08:06
PROVIDERS: ATTEND Internal Medicine
DX: M06.09 Rheumatoid arthritis without rheumatoid factor, multiple sites (principal)

== ENCOUNTER → 2020-05-17 | Outpatient (CLI) | payer MEDICARE ==
--- NOTE | 2020-05-17 11:05 | REPMRS ---
Patient History The patient states she had a clinical breast exam in 04/2020. Patient is postmenopausal and has history of lung cancer at age 72. Family history of breast cancer at age 50 in sister, breast cancer at age 47 in daughter, colorectal cancer at age 81 in brother. Benign stereotatic breast biopsy of the right breast, 1996. No Hormone Replacement Therapy 3D TOMOSYNTHESIS WAS PERFORMED. The [facility] lifetime risk for breast cancer is 5.8%. VOLPARA DENSITY B. Digital Woman Screen Mammo: May 17, 2020 - Exam #: [id number] Bilateral CC and MLO view(s) were taken. Technologist: Marzena Townsend, Technologist Prior study comparison: April 22, 2019, bilateral digital woman screen mammo performed at [facility]. April 21, 2018, bilateral digital woman screen mammo performed at [facility]. FINDINGS: There are scattered fibroglandular densities. There has been no change in the appearance of the mammogram from the prior studies. There is a mild amount of residual fibroglandular tissue which is fairly symmetric. There is no interval development of dominant mass, architectural distortion, or clustered microcalcification suggestive of malignancy. Assessment: BI-RADS/ACR category 1 mammogram. Negative Mammogram. Recommendation Routine screening mammogram in 1 year (for women over age 40). This mammogram was interpreted with the aid of an FDA-approved computer-aided dectection system. Electronically Signed By: Jose D Rodriguez MD 05/17/20 [id number]
== END ==
LOC: M WHC 09:31
PROVIDERS: ATTEND Nurse Practitioner Family
DX: Z12.31 Encounter for screening mammogram for malignant neoplasm of breast (principal); Z78.0 Asymptomatic menopausal state; Z85.118 Personal history of other malignant neoplasm of bronchus and lung; Z80.3 Family history of malignant neoplasm of breast; Z80.0 Family history of malignant neoplasm of digestive organs; Z86.018 Personal history of other benign neoplasm

== ENCOUNTER → 2020-07-18 | Outpatient (CLI) | payer MEDICARE ==
[2020-07-18 11:03] LABS: ALBUMIN 3.8 GM/DL (3.2-5.2); BILIRUBIN,DIRECT 0.2 MG/DL (0.0-0.2); BILIRUBIN,TOTAL 0.6 MG/DL (0.2-1.0); CHOLESTEROL RISK RATIO 3.333 (<5); TOTAL PROTEIN 7.6 GM/DL (6.4-8.2)
[2020-07-18 11:08] LABS: HEMOGLOBIN A1c 6.1 %
== END ==
LOC: M PLALAB 07:53
PROVIDERS: ATTEND Family Medicine
DX: E11.69 Type 2 diabetes mellitus with other specified complication (principal)

== ENCOUNTER → 2020-09-08 | Outpatient (CLI) | payer MEDICARE ==
[~2020-09-08] MED LIST changes: +LISI10TA22 PO; -LISI10TA4 PO
[2020-09-08 13:41] LABS: BASO # 0.1 10^3/uL (0.0-0.2); BASO % 0.9 % (0.0-1.0); EOS # 0.1 10^3/uL (0.0-0.5); EOS % 1.7 % (0.0-3.0); HEMATOCRIT 38.8 % (36.0-47.0); HEMOGLOBIN 12.1 g/dl (12.0-15.5); LYMPH # 1.5 10^3/uL (1.5-5.0); LYMPH % 23.5 % (24.0-44.0); MEAN CORPUSCULAR HEMOGLOBIN 31.8 pg (27.0-33.0); MEAN CORPUSCULAR HGB CONC 31.2 g/dl (32.0-36.5); MEAN CORPUSCULAR VOLUME 101.8 fl (80.0-96.0); MONO # 0.5 10^3/uL (0.0-0.8); MONO % 8.2 % (0.0-5.0); NEUTROPHILS # 4.2 10^3/uL (1.5-8.5); NEUTROPHILS % 65.1 % (36.0-66.0); PLATELET COUNT, AUTOMATED 261 10^3/uL (150-450); RED BLOOD COUNT 3.81 10^6/uL (4.00-5.40); WHITE BLOOD COUNT 6.5 10^3/uL (4.0-10.0)
[2020-09-08 13:58] LABS: ALBUMIN 3.5 GM/DL (3.2-5.2); BILIRUBIN,TOTAL 0.5 MG/DL (0.2-1.0); C REACTIVE PROTEIN QUANTITATIV 0.43 MG/DL (0.00-0.30); CALCIUM LEVEL 8.9 MG/DL (8.8-10.2); CREATININE FOR GFR 1.09 MG/DL (0.55-1.30); GLOMERULAR FILTRATION RATE 51.8 (>39); POTASSIUM SERUM 4.2 MEQ/L (3.5-5.1); TOTAL PROTEIN 6.9 GM/DL (6.4-8.2)
[2020-09-08 14:39] LABS: ERYTHROCYTE SEDIMENTATION RATE 6 mm/hr (0-30)
== END ==
LOC: M PLALAB 10:12
PROVIDERS: ATTEND Internal Medicine
DX: M06.9 Rheumatoid arthritis, unspecified (principal)

== ENCOUNTER → 2020-12-25 | Outpatient (CLI) | payer MEDICARE ==
[~2020-12-25] MED LIST changes: +FOLI0.8T3 PO; -FOLI800T PO
[2020-12-25 10:35] LABS: BASO # 0.1 10^3/uL (0.0-0.2); EOS # 0.1 10^3/uL (0.0-0.5); HEMATOCRIT 40.4 % (36.0-47.0); HEMOGLOBIN 12.7 g/dl (12.0-15.5); LYMPH # 1.9 10^3/uL (1.5-5.0); LYMPH % 31.1 % (24.0-44.0); MEAN CORPUSCULAR HEMOGLOBIN 31.5 pg (27.0-33.0); MEAN CORPUSCULAR HGB CONC 31.4 g/dl (32.0-36.5); MEAN CORPUSCULAR VOLUME 100.2 fl (80.0-96.0); MONO # 0.6 10^3/uL (0.0-0.8); MONO % 9.5 % (2.0-8.0); NEUTROPHILS # 3.4 10^3/uL (1.5-8.5); NEUTROPHILS % 55.6 % (36.0-66.0); PLATELET COUNT, AUTOMATED 169 10^3/uL (150-450); RED BLOOD COUNT 4.03 10^6/uL (4.00-5.40); WHITE BLOOD COUNT 6.1 10^3/uL (4.0-10.0)
[2020-12-25 10:49] LABS: ALBUMIN 3.7 GM/DL (3.2-5.2); ALT/SGPT 28 U/L (12-78); BILIRUBIN,TOTAL 0.4 MG/DL (0.2-1.0); BLOOD UREA NITROGEN 14 MG/DL (7-18); CARBON DIOXIDE LEVEL 27 MEQ/L (21-32); CHLORIDE LEVEL 106 MEQ/L (98-107); CREATININE FOR GFR 0.77 MG/DL (0.55-1.30); GLOMERULAR FILTRATION RATE > 60.0 (>39); GLUCOSE, FASTING 97 MG/DL (70-100); POTASSIUM SERUM 4.9 MEQ/L (3.5-5.1); SODIUM LEVEL 139 MEQ/L (136-145); TOTAL PROTEIN 7.3 GM/DL (6.4-8.2)
[2020-12-25 11:07] LABS: ERYTHROCYTE SEDIMENTATION RATE 29 mm/hr (0-30)
== END ==
LOC: M PLALAB 08:23
PROVIDERS: ATTEND Internal Medicine
DX: M06.09 Rheumatoid arthritis without rheumatoid factor, multiple sites (principal)

== ENCOUNTER → 2021-01-19 | Outpatient (CLI) | payer MEDICARE ==
[2021-01-19 13:26] LABS: BASO # 0.1 10^3/uL (0.0-0.2); BASO % 0.7 % (0.0-1.0); EOS # 0.1 10^3/uL (0.0-0.5); EOS % 1.2 % (0.0-3.0); HEMATOCRIT 40.3 % (36.0-47.0); LYMPH # 1.9 10^3/uL (1.5-5.0); LYMPH % 25.5 % (24.0-44.0); MEAN CORPUSCULAR HEMOGLOBIN 32.1 pg (27.0-33.0); MEAN CORPUSCULAR HGB CONC 32.3 g/dl (32.0-36.5); MEAN CORPUSCULAR VOLUME 99.5 fl (80.0-96.0); MONO # 0.7 10^3/uL (0.0-0.8); MONO % 9.6 % (2.0-8.0); NEUTROPHILS # 4.7 10^3/uL (1.5-8.5); NEUTROPHILS % 62.2 % (36.0-66.0); PLATELET COUNT, AUTOMATED 284 10^3/uL (150-450); RED BLOOD COUNT 4.05 10^6/uL (4.00-5.40); WHITE BLOOD COUNT 7.5 10^3/uL (4.0-10.0)
[2021-01-19 13:42] LABS: ALBUMIN 3.9 GM/DL (3.2-5.2); ALT/SGPT 30 U/L (12-78); BILIRUBIN,TOTAL 0.6 MG/DL (0.2-1.0); BLOOD UREA NITROGEN 14 MG/DL (7-18); CALCIUM LEVEL 9.6 MG/DL (8.8-10.2); CARBON DIOXIDE LEVEL 27 MEQ/L (21-32); CHLORIDE LEVEL 107 MEQ/L (98-107); CHOLESTEROL LEVEL 169 MG/DL (<200); CREATININE FOR GFR 0.84 MG/DL (0.55-1.30); FREE T4 1.12 NG/DL (0.76-1.46); GLOMERULAR FILTRATION RATE > 60.0 (>39); GLUCOSE, FASTING 99 MG/DL (70-100); HDL CHOLESTEROL 50 MG/DL (>40); LDL CHOLESTEROL 84 MG/DL (<100); NON-HDL-C 119 MG/DL; POTASSIUM SERUM 4.4 MEQ/L (3.5-5.1); SODIUM LEVEL 139 MEQ/L (136-145); TOTAL PROTEIN 7.6 GM/DL (6.4-8.2); TRIGLYCERIDES LEVEL 177 MG/DL (<150)
[2021-01-19 13:49] LABS: HEMOGLOBIN A1c 6.1 %
[2021-01-19 13:57] LABS: CREATININE, URINE < 13.0 MG/DL; MALB URINE SIEMENS < 5.0 MG/L
== END ==
LOC: M PLALAB 09:23
PROVIDERS: ATTEND Family Medicine
DX: E11.69 Type 2 diabetes mellitus with other specified complication (principal); E03.9 Hypothyroidism, unspecified

== ENCOUNTER → 2021-02-28 | Outpatient (CLI) | payer MEDICARE ==
--- NOTE | 2021-02-28 09:33 | REP ---
INDICATION: COPD COMPARISON: 12/08/2014 TECHNIQUE: Axial noncontrast images from the thoracic inlet to the upper abdomen with coronal and sagittal reformations. This CT examination was performed using the following dose reduction techniques: Automated exposure control, adjustment of mA and/or kv according to the patient's size, and use of iterative reconstruction technique. FINDINGS: Patient appears to be status post partial right lower lobectomy with postsurgical changes at the hilum and right base. Chronic age-related interstitial changes are suggested bilaterally along with mild emphysematous changes. No acute consolidation or effusion. No pneumothorax. Tracheobronchial tree is patent. No obvious adenopathy. Atherosclerotic changes to the thoracic aorta without aneurysm again noted. Atherosclerotic changes to the coronary arteries are identified without cardiomegaly or pericardial effusion. Thyroid gland is grossly normal. Surrounding musculoskeletal structures without acute osseous abnormality. IMPRESSION: 1. Postsurgical changes involving the right hemithorax along with mild chronic COPD and interstitial changes. 2. No acute mediastinal or pleuroparenchymal process appreciated. 3. Atherosclerotic disease to the thoracic aorta and coronary arteries without aortic aneurysm or cardiomegaly. <Electronically signed by Juan Mora > 02/28/21 [id number]
== END ==
LOC: M RAD 07:01
PROVIDERS: ATTEND Internal Medicine Pulmonary Disease
DX: C34.11 Malignant neoplasm of upper lobe, right bronchus or lung (principal); J44.9 Chronic obstructive pulmonary disease, unspecified; I70.0 Atherosclerosis of aorta; I25.10 Atherosclerotic heart disease of native coronary artery without angina pectoris

== ENCOUNTER → 2021-04-02 | Outpatient (CLI) | payer MEDICARE ==
[~2021-04-02] MED LIST changes: +AMLO1TAB24 PO; +ATOR1TAB19 PO; +CITRTAB18 PO; +CRAN400C PO; +FOLI1TAB11 PO; +LOSA100T45 PO; -LOSA100T50 PO; +VITMTA PO
[2021-04-02 10:38] LABS: BASO # 0.1 10^3/uL (0.0-0.2); BASO % 0.8 % (0.0-1.0); EOS # 0.1 10^3/uL (0.0-0.5); EOS % 2.3 % (0.0-3.0); HEMATOCRIT 39.3 % (36.0-47.0); HEMOGLOBIN 12.5 g/dl (12.0-15.5); LYMPH # 1.6 10^3/uL (1.5-5.0); LYMPH % 25.9 % (24.0-44.0); MEAN CORPUSCULAR HEMOGLOBIN 32.1 pg (27.0-33.0); MEAN CORPUSCULAR HGB CONC 31.8 g/dl (32.0-36.5); MONO # 0.6 10^3/uL (0.0-0.8); MONO % 9.9 % (2.0-8.0); NEUTROPHILS # 3.6 10^3/uL (1.5-8.5); NEUTROPHILS % 60.1 % (36.0-66.0); PLATELET COUNT, AUTOMATED 253 10^3/uL (150-450); RED BLOOD COUNT 3.89 10^6/uL (4.00-5.40)
[2021-04-02 11:27] LABS: ERYTHROCYTE SEDIMENTATION RATE 35 mm/hr (0-30)
[2021-04-02 11:51] LABS: BLOOD UREA NITROGEN 13 MG/DL (7-18); CARBON DIOXIDE LEVEL 25 MEQ/L (21-32); CHLORIDE LEVEL 110 MEQ/L (98-107); CREATININE FOR GFR 0.81 MG/DL (0.55-1.30); GLOMERULAR FILTRATION RATE > 60.0 (>39); GLUCOSE, FASTING 101 MG/DL (70-100); POTASSIUM SERUM 5.4 MEQ/L (3.5-5.1); SODIUM LEVEL 140 MEQ/L (136-145)
[2021-04-02 11:52] LABS: ALBUMIN 3.6 GM/DL (3.2-5.2); ALT/SGPT 24 U/L (12-78); BILIRUBIN,TOTAL 0.5 MG/DL (0.2-1.0); CALCIUM LEVEL 9.1 MG/DL (8.8-10.2)
== END ==
LOC: M PLALAB 07:55
PROVIDERS: ATTEND Internal Medicine
DX: M06.09 Rheumatoid arthritis without rheumatoid factor, multiple sites (principal)

== ENCOUNTER → 2021-04-09 | Outpatient (REF) | payer MEDICARE ==
[~2021-04-09] MED LIST changes: -AMLO1TAB24 PO; -ATOR1TAB19 PO; -CITRTAB18 PO; -CRAN400C PO; -FOLI1TAB11 PO; -LOSA100T45 PO; +LOSA100T50 PO; -VITMTA PO
[2021-04-09 18:01] LABS: BLOOD UREA NITROGEN 12 MG/DL (7-18); C REACTIVE PROTEIN QUANTITATIV 0.37 MG/DL (0.00-0.30); CALCIUM LEVEL 9.4 MG/DL (8.8-10.2); CARBON DIOXIDE LEVEL 27 MEQ/L (21-32); CHLORIDE LEVEL 106 MEQ/L (98-107); CREATININE FOR GFR 0.85 MG/DL (0.55-1.30); GLOMERULAR FILTRATION RATE > 60.0 (>39); GLUCOSE, FASTING 90 MG/DL (70-100); POTASSIUM SERUM 4.8 MEQ/L (3.5-5.1); SODIUM LEVEL 139 MEQ/L (136-145)
== END ==
LOC: M SFHCRHEU 12:33
PROVIDERS: ATTEND Internal Medicine
DX: M06.09 Rheumatoid arthritis without rheumatoid factor, multiple sites (principal)
CPT/HCPCS: 80048; 85652; 86140; G0463

== ENCOUNTER → 2021-05-22 | Outpatient (CLI) | payer MEDICARE ==
--- NOTE | 2021-05-22 10:42 | REPMRS ---
Patient History The patient states she had a clinical breast exam in April 2021. Family history of breast cancer at age 50 in sister, breast cancer at age 47 in daughter, colorectal cancer at age 81 in brother. Benign stereotatic breast biopsy of the right breast, 1996. No Hormone Replacement Therapy Patient states no breast complaints today. Patient has signed MRS History Sheet. Digital Woman Screen Mammo: May 22, 2021 - Exam #: [id number] Bilateral CC and MLO view(s) were taken. Technologist: Francisca Dominguez, Technologist Prior study comparison: May 17, 2020, bilateral digital woman screen mammo performed at [facility]. April 22, 2019, bilateral digital woman screen mammo performed at [facility]. FINDINGS: There are scattered fibroglandular densities. Screening. Digital screening (2D) mammography was performed bilaterally in the CC and MLO projections. Additionally, breast tomosynthesis (3D mammography) was performed bilaterally in the CC and MLO projections. Todays exam was compared to the prior exam/exams. By history, the patient has no complaints of a palpable breast abnormality or other significant breast complaints. The breasts are unchanged in size and shape. There are no poncho-soft tissue densities or spiculated masses. There is no internal architectural distortion. Once again, stable benign appearing calcifications are seen.There are no suspicious poncho-calcific clusters. Skin thickening or nipple retraction is not present. IMPRESSION: BI-RADS Category 2- Benign Findings. There is no evidence of malignant alteration of the breasts. Followup examination recommended in one year. The Volpara volumetric breast density category is B, there are scattered areas of fibroglandular densities. This mammogram was read with the assistance of [facility],an FDA approved computer aided detection system for mammography. The lifetime Tyrer-Cuzick score is 5.1 % Negative x-ray reports should not delay surgical consultation if a dominant or clinically suspicious mass is present. Not all breast cancers can be identified by mammography. Therefore, we recommend that you continue to perform regular breast self-examination and physical examination and then promptly contact your physician of any concerns or changes. Adenosis and dense breasts may obscure an underlying neoplasm. Assessment: BI-RADS/ACR category 2 mammogram. Benign Findings. Recommendation Routine screening mammogram of both breasts in 1 year. Electronically Signed By: Ady Gifford DO 05/22/21 [id number]
== END ==
LOC: M WHC 09:05
PROVIDERS: ATTEND Nurse Practitioner Women's Health
DX: Z12.31 Encounter for screening mammogram for malignant neoplasm of breast (principal); Z80.3 Family history of malignant neoplasm of breast

== ENCOUNTER → 2021-06-08 | Outpatient (CLI) | payer MEDICARE ==
[~2021-06-08] MED LIST changes: +AMLO1TAB24 PO; +ATOR1TAB19 PO; +CITRTAB18 PO; +CRAN400C PO; +FOLI1TAB11 PO; +VITMTA PO
--- NOTE | 2021-06-08 10:15 | REP ---
INDICATION: PAIN, SWELLING COMPARISON: None. TECHNIQUE: AP, lateral, bilateral oblique views. FINDINGS: Mild soft tissue swelling cannot be excluded. Osseous structures and joint spaces appear relatively age-appropriate. No obvious acute fracture or dislocation. Ankle mortise intact. IMPRESSION: Mild swelling. No obvious acute fracture or dislocation. <Electronically signed by Juan Mora > 06/08/21 [id number]
--- NOTE | 2021-06-08 10:17 | REP ---
INDICATION: PAIN, SWELLING COMPARISON: 05/11/2018 TECHNIQUE: AP, lateral, bilateral oblique views right foot. FINDINGS: Osseous structures, joint spaces, and surrounding soft tissues appear relatively age-appropriate and essentially stable as compared to prior exam. There is a very small new calcification just medial to the metatarsophalangeal joint which may represent chronic change or small acute fracture fragment and correlation with physical examination, history of injury and point of tenderness is recommended. No further acute fracture or dislocation identified or suspected. IMPRESSION: Essentially stable age-related changes throughout the foot. Small relatively new density along the medial MTP joint may represent chronic change versus small fracture fragment. Correlation required. <Electronically signed by Juan Mora > 06/08/21 [id number]
== END ==
LOC: M PLAIMG 09:39
PROVIDERS: ATTEND Nurse Practitioner Family
DX: M79.671 Pain in right foot (principal); M79.89 Other specified soft tissue disorders

== ENCOUNTER → 2021-06-14 | Outpatient (CLI) | payer MEDICARE | LOC: M LABSMTC 10:01 | PROVIDERS: ATTEND Anesthesiology | DX: Z01.812 Encounter for preprocedural laboratory examination (principal); Z20.822 Contact with and (suspected) exposure to COVID-19 ==

== ENCOUNTER 2021-06-19 11:16 | Day surgery (SDC) | payer MEDICARE ==
[~2021-06-19] VITALS: Ht 162.6 cm; Wt 82.9 kg
[~2021-06-19 11:16] MED LIST changes: +NS 1,000 ML IV ONE
[2021-06-19] MEDS ORDERED: propofoL 200 MG/20 ML VIAL As Ordered ONE (12:02)
[2021-06-19] MEDS ORDERED: LIDOCAINE 2% 100MG/5ML SDV (FOR ANES.) As Ordered ONE (12:02)
[2021-06-19] MEDS ORDERED: ePHEDrine SULFATE 25 MG/5 ML(5MG/ML) SYRINGE As Ordered ONE (13:00)
--- NOTE | 2021-06-19 13:09 | ROOR ---
Patient Name: Katherine Ingram Procedure Date: 06/19/2021 12:42 PM Date of : 1945 Age: 76 Room: [facility] Gender: Female Note Status: Finalized Procedure: Colonoscopy Indications: High risk colon cancer surveillance: Personal history of colonic polyps, Family history of colon cancer Providers: Domingo Jiménez MD Referring MD: Alfreda Jason MD Requesting Provider: Medicines: Monitored Anesthesia Care Complications: No immediate complications. Procedure: Pre-Anesthesia Assessment: - The heart rate, respiratory rate, oxygen saturations, blood pressure, adequacy of pulmonary ventilation, and response to care were monitored throughout the procedure. The Colonoscope was introduced through the anus and advanced to the terminal ileum, with identification of the appendiceal orifice and IC valve. The colonoscopy was performed without difficulty. The patient tolerated the procedure well. The quality of the bowel preparation was good. Findings: Hemorrhoids were found on perianal exam. Mild sigmoid diverticulosis and small internal hemorrhoids. The exam was otherwise without abnormality on direct and retroflexion views. Impression: - Hemorrhoids found on perianal exam. - Mild sigmoid diverticulosis and small internal hemorrhoids. - The examination was otherwise normal on direct and retroflexion views. - No specimens collected. Recommendation: - Repeat colonoscopy is not recommended for screening purposes. Procedure Code(s): --- Professional --- 99677, Colonoscopy, flexible; diagnostic, including collection of specimen(s) by brushing or washing, when performed (separate procedure) Diagnosis Code(s): --- Professional --- Z86.010, Personal history of colonic polyps K64.9, Unspecified hemorrhoids Z80.0, Family history of malignant neoplasm of digestive organs CPT copyright 2019 [employer]. All rights reserved. The codes documented in this report are preliminary and upon social contact worker review may be revised to meet current compliance requirements. Domingo Jiménez MD Domingo Jiménez MD 06/19/2021 1:09:40 PM Electronically signed by Domingo Jiménez MD Number of Addenda: 0 Note Initiated On: 06/19/2021 12:42 PM Estimated Blood Loss: Estimated blood loss: none.
[2021-06-19 13:25] VITALS: BP 136/69
== END 2021-06-19 13:34 | disposition home or self-care (01) ==
LOC: M OPP 11:16
PROVIDERS: ATTEND Internal Medicine Gastroenterology
DX: Z12.11 Encounter for screening for malignant neoplasm of colon (principal); Z86.010 Personal history of colon polyps; Z80.0 Family history of malignant neoplasm of digestive organs; K57.30 Diverticulosis of large intestine without perforation or abscess without bleeding; K64.8 Other hemorrhoids; Z79.82 Long term (current) use of aspirin; Z79.4 Long term (current) use of insulin; Z79.899 Other long term (current) drug therapy; Z88.0 Allergy status to penicillin; Z88.2 Allergy status to sulfonamides; Z85.118 Personal history of other malignant neoplasm of bronchus and lung; Z83.79 Family history of other diseases of the digestive system; Z87.891 Personal history of nicotine dependence

== ENCOUNTER → 2021-07-16 | Outpatient (CLI) | payer MEDICARE ==
[~2021-07-16] MED LIST changes: -NS 1,000 ML IV ONE
[2021-07-16 10:57] LABS: BASO # 0.1 10^3/uL (0.0-0.2); BASO % 0.8 % (0.0-1.0); EOS # 0.2 10^3/uL (0.0-0.5); EOS % 2.4 % (0.0-3.0); HEMATOCRIT 37.9 % (36.0-47.0); HEMOGLOBIN 12.4 g/dl (12.0-15.5); LYMPH # 1.7 10^3/uL (1.5-5.0); LYMPH % 23.8 % (24.0-44.0); MEAN CORPUSCULAR HEMOGLOBIN 32.5 pg (27.0-33.0); MEAN CORPUSCULAR HGB CONC 32.7 g/dl (32.0-36.5); MEAN CORPUSCULAR VOLUME 99.5 fl (80.0-96.0); MONO # 0.6 10^3/uL (0.0-0.8); MONO % 8.4 % (2.0-8.0); NEUTROPHILS # 4.5 10^3/uL (1.5-8.5); NEUTROPHILS % 62.9 % (36.0-66.0); PLATELET COUNT, AUTOMATED 298 10^3/uL (150-450); RED BLOOD COUNT 3.81 10^6/uL (4.00-5.40); WHITE BLOOD COUNT 7.1 10^3/uL (4.0-10.0)
[2021-07-16 11:36] LABS: ERYTHROCYTE SEDIMENTATION RATE 49 mm/hr (0-30)
[2021-07-16 11:41] LABS: ALBUMIN 3.5 GM/DL (3.2-5.2); BILIRUBIN,DIRECT 0.1 MG/DL (0.0-0.2); BILIRUBIN,TOTAL 0.3 MG/DL (0.2-1.0); C REACTIVE PROTEIN QUANTITATIV 0.5 MG/DL (0.00-0.30); CALCIUM LEVEL 9.7 MG/DL (8.8-10.2); CREATININE FOR GFR 1.01 MG/DL (0.55-1.30); GLOMERULAR FILTRATION RATE 56.4 (>39); POTASSIUM SERUM 4.7 MEQ/L (3.5-5.1); TOTAL PROTEIN 7.5 GM/DL (6.4-8.2)
== END ==
LOC: M PLALAB 08:05
PROVIDERS: ATTEND Internal Medicine
DX: M06.09 Rheumatoid arthritis without rheumatoid factor, multiple sites (principal)

== ENCOUNTER → 2022-03-06 | Outpatient (CLI) | payer MEDICARE ==
[~2022-03-06] MED LIST changes: +LOSA100T45 PO; -LOSA100T50 PO
== END ==
LOC: M PLAIMG 10:53
PROVIDERS: ATTEND Internal Medicine Pulmonary Disease
DX: J44.9 Chronic obstructive pulmonary disease, unspecified (principal)

== ENCOUNTER → 2022-03-11 | Outpatient (CLI) | payer MEDICARE ==
[2022-03-11 10:45] LABS: BASO # 0.1 10^3/uL (0.0-0.2); BASO % 0.7 % (0.0-1.0); EOS # 0.1 10^3/uL (0.0-0.5); EOS % 1.8 % (0.0-3.0); HEMATOCRIT 37.1 % (36.0-47.0); HEMOGLOBIN 11.5 g/dl (12.0-15.5); LYMPH # 1.4 10^3/uL (1.5-5.0); LYMPH % 19.9 % (24.0-44.0); MEAN CORPUSCULAR HEMOGLOBIN 30.4 pg (27.0-33.0); MEAN CORPUSCULAR VOLUME 98.1 fl (80.0-96.0); MONO # 0.8 10^3/uL (0.0-0.8); MONO % 10.6 % (2.0-8.0); NEUTROPHILS # 4.7 10^3/uL (1.5-8.5); PLATELET COUNT, AUTOMATED 287 10^3/uL (150-450); RED BLOOD COUNT 3.78 10^6/uL (4.00-5.40); WHITE BLOOD COUNT 7.1 10^3/uL (4.0-10.0)
[2022-03-11 11:11] LABS: ERYTHROCYTE SEDIMENTATION RATE 49 mm/hr (0-30)
[2022-03-11 12:06] LABS: ALBUMIN 3.5 GM/DL (3.2-5.2); ALT/SGPT 27 U/L (12-78); BILIRUBIN,DIRECT 0.1 MG/DL (0.0-0.2); BILIRUBIN,TOTAL 0.5 MG/DL (0.2-1.0); BLOOD UREA NITROGEN 13 MG/DL (7-18); CALCIUM LEVEL 9.3 MG/DL (8.8-10.2); CARBON DIOXIDE LEVEL 26 MEQ/L (21-32); CHLORIDE LEVEL 107 MEQ/L (98-107); CREATININE FOR GFR 0.84 MG/DL (0.55-1.30); GLOMERULAR FILTRATION RATE > 60.0 (>39); GLUCOSE, FASTING 105 MG/DL (70-100); POTASSIUM SERUM 4.9 MEQ/L (3.5-5.1); SODIUM LEVEL 138 MEQ/L (136-145); TOTAL PROTEIN 7.3 GM/DL (6.4-8.2)
== END ==
LOC: M PLALAB 08:06
PROVIDERS: ATTEND Internal Medicine
DX: M06.09 Rheumatoid arthritis without rheumatoid factor, multiple sites (principal)

== ENCOUNTER → 2022-03-18 | Outpatient (CLI) | payer MEDICARE ==
[~2022-03-18] MED LIST changes: +SIMV-252 PO; -ZOCO10TA PO
== END ==
LOC: M RAD 14:46
PROVIDERS: ATTEND Internal Medicine
DX: M16.0 Bilateral primary osteoarthritis of hip (principal); M70.60 Trochanteric bursitis, unspecified hip

== ENCOUNTER → 2022-03-18 | Outpatient (REF) | payer MEDICARE ==
[2022-03-18 20:12] LABS: MAGNESIUM LEVEL 1.8 MG/DL (1.8-2.4); PHOSPHORUS LEVEL 4.4 MG/DL (2.5-4.9)
[2022-03-19 10:04] LABS: TOTAL 25(OH) VITAMIN D 34.8 NG/ML (30.0-100.0)
== END ==
LOC: M SFHCRHEU 12:37
PROVIDERS: ATTEND Internal Medicine
DX: M79.10 Myalgia, unspecified site (principal); Z79.899 Other long term (current) drug therapy

== ENCOUNTER → 2022-05-04 | Outpatient (REF) | payer MEDICARE | LOC: M WUC 18:22 | PROVIDERS: ATTEND Physician Assistant | DX: N39.0 Urinary tract infection, site not specified (principal) ==

== ENCOUNTER → 2022-05-08 | Outpatient (CLI) | payer MEDICARE | LOC: M RAD 11:25 | PROVIDERS: ATTEND Nurse Practitioner Family | DX: M79.672 Pain in left foot (principal) ==

== ENCOUNTER → 2022-05-23 | Outpatient (CLI) | payer MEDICARE | LOC: M WHC 09:01 | PROVIDERS: ATTEND Nurse Practitioner Family | DX: Z12.31 Encounter for screening mammogram for malignant neoplasm of breast (principal) ==

== ENCOUNTER → 2022-06-20 | Outpatient (CLI) | payer MEDICARE ==
[2022-06-20 12:32] LABS: BASO # 0.1 10^3/uL (0.0-0.2); BASO % 0.7 % (0.0-1.0); EOS # 0.1 10^3/uL (0.0-0.5); EOS % 1.2 % (0.0-3.0); HEMATOCRIT 38.9 % (36.0-47.0); HEMOGLOBIN 12.1 g/dl (12.0-15.5); LYMPH # 1.7 10^3/uL (1.5-5.0); LYMPH % 20.6 % (24.0-44.0); MEAN CORPUSCULAR HEMOGLOBIN 31.5 pg (27.0-33.0); MEAN CORPUSCULAR HGB CONC 31.1 g/dl (32.0-36.5); MEAN CORPUSCULAR VOLUME 101.3 fl (80.0-96.0); MONO # 0.8 10^3/uL (0.0-0.8); MONO % 9.4 % (2.0-8.0); NEUTROPHILS # 5.5 10^3/uL (1.5-8.5); NEUTROPHILS % 66.5 % (36.0-66.0); PLATELET COUNT, AUTOMATED 360 10^3/uL (150-450); RED BLOOD COUNT 3.84 10^6/uL (4.00-5.40); WHITE BLOOD COUNT 8.3 10^3/uL (4.0-10.0)
[2022-06-20 13:21] LABS: ALBUMIN 3.5 GM/DL (3.2-5.2); ALT/SGPT 28 U/L (12-78); BILIRUBIN,DIRECT 0.2 MG/DL (0.0-0.2); BILIRUBIN,TOTAL 0.6 MG/DL (0.2-1.0); BLOOD UREA NITROGEN 15 MG/DL (7-18); C REACTIVE PROTEIN QUANTITATIV 0.35 MG/DL (0.00-0.30); CALCIUM LEVEL 9.4 MG/DL (8.8-10.2); CARBON DIOXIDE LEVEL 27 MEQ/L (21-32); CHLORIDE LEVEL 101 MEQ/L (98-107); GLOMERULAR FILTRATION RATE > 60.0 (>39); GLUCOSE, FASTING 98 MG/DL (70-100); POTASSIUM SERUM 4.7 MEQ/L (3.5-5.1); SODIUM LEVEL 136 MEQ/L (136-145)
[2022-06-20 13:39] LABS: ERYTHROCYTE SEDIMENTATION RATE 51 mm/hr (0-30)
== END ==
LOC: M PLALAB 08:00
PROVIDERS: ATTEND Internal Medicine
DX: M06.09 Rheumatoid arthritis without rheumatoid factor, multiple sites (principal)

== ENCOUNTER → 2022-07-15 | Outpatient (REF) | payer MEDICARE | LOC: M WUC 12:24 | PROVIDERS: ATTEND Student in an Organized Health Care Education/Training Program | DX: R30.0 Dysuria (principal) ==

== ENCOUNTER → 2022-07-23 | Outpatient (REF) | payer MEDICARE | LOC: M LAB REF 17:03 | PROVIDERS: ATTEND Nurse Practitioner Family | DX: R39.9 Unspecified symptoms and signs involving the genitourinary system (principal) ==

== ENCOUNTER → 2022-07-30 | Outpatient (REF) | payer MEDICARE ==
[2022-07-30 13:38] LABS: FOLATE > 24.0 NG/ML (>5.4); VITAMIN B12 LEVEL 358 PG/ML (211-911)
[2022-07-30 13:39] LABS: ALBUMIN 3.6 G/DL (3.2-5.2); ALKALINE PHOSPHATASE 52 U/L (46-116); ALT/SGPT 22 U/L (7.0-40); AST/SGOT 23 U/L (<34); BILIRUBIN,TOTAL 0.6 MG/DL (0.3-1.2); BLOOD UREA NITROGEN 12 MG/DL (9-23); CALCIUM LEVEL 9.7 MG/DL (8.3-10.6); CARBON DIOXIDE LEVEL 27 MMOL/L (20-31); CHLORIDE LEVEL 103 MMOL/L (98-107); CHOLESTEROL LEVEL 132 MG/DL (<200); CHOLESTEROL RISK RATIO 2.91 (<5); CREATININE FOR GFR 0.85 MG/DL (0.55-1.30); GLOMERULAR FILTRATION RATE > 60.0 (>39); GLUCOSE, FASTING 93 MG/DL (74-106); HDL CHOLESTEROL 45.3 MG/DL (>40); LDL CHOLESTEROL 57.1 MG/DL (<100); NON-HDL-C 87 MG/DL; POTASSIUM SERUM 5.1 MMOL/L (3.5-5.1); SODIUM LEVEL 138 MMOL/L (136-145); TOTAL PROTEIN 6.9 G/DL (5.7-8.2); TRIGLYCERIDES LEVEL 148 MG/DL (<150)
[2022-07-30 13:55] LABS: HEMOGLOBIN A1c 5.5 % (4.0-6.0)
== END ==
LOC: M LAB REF 12:29
PROVIDERS: ATTEND Nurse Practitioner Family
DX: E11.9 Type 2 diabetes mellitus without complications (principal); E53.9 Vitamin B deficiency, unspecified; E78.5 Hyperlipidemia, unspecified

== ENCOUNTER → 2022-08-08 | Outpatient (CLI) | payer MEDICARE | LOC: M RAD 09:24 | PROVIDERS: ATTEND Nurse Practitioner Family | DX: M79.671 Pain in right foot (principal); M19.071 Primary osteoarthritis, right ankle and foot ==

== ENCOUNTER → 2022-09-16 | Outpatient (CLI) | payer MEDICARE ==
[2022-09-16 10:20] LABS: BASO # 0.1 10^3/uL (0.0-0.2); BASO % 0.9 % (0.0-1.0); EOS # 0.1 10^3/uL (0.0-0.5); HEMATOCRIT 38.9 % (36.0-47.0); HEMOGLOBIN 12.2 g/dl (12.0-15.5); LYMPH % 22.2 % (24.0-44.0); MEAN CORPUSCULAR HGB CONC 31.4 g/dl (32.0-36.5); MEAN CORPUSCULAR VOLUME 102.1 fl (80.0-96.0); MONO # 0.8 10^3/uL (0.0-0.8); MONO % 9.5 % (2.0-8.0); NEUTROPHILS # 5.7 10^3/uL (1.5-8.5); NEUTROPHILS % 64.8 % (36.0-66.0); PLATELET COUNT, AUTOMATED 319 10^3/uL (150-450); RED BLOOD COUNT 3.81 10^6/uL (4.00-5.40); WHITE BLOOD COUNT 8.8 10^3/uL (4.0-10.0)
[2022-09-16 10:47] LABS: ALBUMIN 3.5 G/DL (3.2-5.2); ALKALINE PHOSPHATASE 55 U/L (46-116); ALT/SGPT 19 U/L (7.0-40); AST/SGOT 22 U/L (<34); BILIRUBIN,DIRECT 0.1 MG/DL (<0.4); BILIRUBIN,TOTAL 0.4 MG/DL (0.3-1.2); BLOOD UREA NITROGEN 14 MG/DL (9-23); CALCIUM LEVEL 9.6 MG/DL (8.3-10.6); CARBON DIOXIDE LEVEL 26 MMOL/L (20-31); CHLORIDE LEVEL 104 MMOL/L (98-107); CREATININE FOR GFR 0.76 MG/DL (0.55-1.30); GLOMERULAR FILTRATION RATE > 60.0 (>39); GLUCOSE, FASTING 96 MG/DL (74-106); POTASSIUM SERUM 4.7 MMOL/L (3.5-5.1); SODIUM LEVEL 140 MMOL/L (136-145); TOTAL PROTEIN 6.7 G/DL (5.7-8.2)
[2022-09-16 11:27] LABS: ERYTHROCYTE SEDIMENTATION RATE 48 mm/hr (0-30)
[2022-09-16 12:32] LABS: C REACTIVE PROTEIN QUANTITATIV < 0.40 MG/DL (<1.0)
== END ==
LOC: M WUC 08:08
PROVIDERS: ATTEND Internal Medicine
DX: M06.09 Rheumatoid arthritis without rheumatoid factor, multiple sites (principal)

== ENCOUNTER → 2022-12-03 | Outpatient (REF) | payer MEDICARE ==
[2022-12-03 13:51] LABS: HEMOGLOBIN A1c 5.9 % (4.0-6.0)
[2022-12-03 14:08] LABS: CHOLESTEROL RISK RATIO 3.39 (<5); HDL CHOLESTEROL 45.7 MG/DL (>40); LDL CHOLESTEROL 72.1 MG/DL (<100); NON-HDL-C 109.3 MG/DL
[2022-12-03 14:10] LABS: THYROID STIMULATING HORMONE 4.353 uIU/ML (0.55-4.78)
== END ==
LOC: M LAB REF 12:11
PROVIDERS: ATTEND Nurse Practitioner Family
DX: E78.5 Hyperlipidemia, unspecified (principal); E11.9 Type 2 diabetes mellitus without complications; E03.9 Hypothyroidism, unspecified

== ENCOUNTER → 2022-12-16 | Outpatient (CLI) | payer MEDICARE ==
[2022-12-16 13:20] LABS: ALBUMIN 3.6 G/DL (3.2-5.2); ALKALINE PHOSPHATASE 56 U/L (46-116); ALT/SGPT 23 U/L (7.0-40); AST/SGOT 25 U/L (<34); BILIRUBIN,DIRECT < 0.1 MG/DL (<0.4); BILIRUBIN,TOTAL 0.5 MG/DL (0.3-1.2); BLOOD UREA NITROGEN 13 MG/DL (9-23); C REACTIVE PROTEIN QUANTITATIV < 0.40 MG/DL (<1.0); CALCIUM LEVEL 9.1 MG/DL (8.3-10.6); CARBON DIOXIDE LEVEL 27 MMOL/L (20-31); CHLORIDE LEVEL 104 MMOL/L (98-107); CREATININE FOR GFR 0.81 MG/DL (0.55-1.30); GLOMERULAR FILTRATION RATE > 60.0 (>39); GLUCOSE, FASTING 92 MG/DL (74-106); POTASSIUM SERUM 4.8 MMOL/L (3.5-5.1); SODIUM LEVEL 138 MMOL/L (136-145); TOTAL PROTEIN 6.9 G/DL (5.7-8.2)
[2022-12-16 13:25] LABS: BASO # 0.1 10^3/uL (0.0-0.2); BASO % 0.9 % (0.0-1.0); EOS # 0.1 10^3/uL (0.0-0.5); EOS % 1.5 % (0.0-3.0); HEMATOCRIT 40.1 % (36.0-47.0); HEMOGLOBIN 12.6 g/dl (12.0-15.5); LYMPH # 1.8 10^3/uL (1.5-5.0); LYMPH % 23.6 % (24.0-44.0); MEAN CORPUSCULAR HEMOGLOBIN 32.6 pg (27.0-33.0); MEAN CORPUSCULAR HGB CONC 31.4 g/dl (32.0-36.5); MEAN CORPUSCULAR VOLUME 103.9 fl (80.0-96.0); MONO # 0.8 10^3/uL (0.0-0.8); MONO % 11.1 % (2.0-8.0); NEUTROPHILS # 4.6 10^3/uL (1.5-8.5); NEUTROPHILS % 61.6 % (36.0-66.0); PLATELET COUNT, AUTOMATED 295 10^3/uL (150-450); RED BLOOD COUNT 3.86 10^6/uL (4.00-5.40); WHITE BLOOD COUNT 7.4 10^3/uL (4.0-10.0)
[2022-12-16 13:52] LABS: ERYTHROCYTE SEDIMENTATION RATE 50 mm/hr (0-30)
== END ==
LOC: M WUC 08:34
PROVIDERS: ATTEND Internal Medicine
DX: M06.09 Rheumatoid arthritis without rheumatoid factor, multiple sites (principal)

== ENCOUNTER → 2023-02-18 | Outpatient (REF) | payer MEDICARE ==
[~2023-02-18] MED LIST changes: -LOSA100T45 PO; +LOSA100T46 PO
[2023-02-18 14:23] LABS: TOTAL 25(OH) VITAMIN D 40.1 NG/ML (20.0-100.0)
== END ==
LOC: M SFHCRHEU 10:38
PROVIDERS: ATTEND Internal Medicine
DX: E61.1 Iron deficiency (principal); Z79.899 Other long term (current) drug therapy

== ENCOUNTER → 2023-03-28 | Outpatient (CLI) | payer MEDICARE | LOC: M RAD 08:54 | PROVIDERS: ATTEND Internal Medicine Pulmonary Disease | DX: J44.9 Chronic obstructive pulmonary disease, unspecified (principal); I25.10 Atherosclerotic heart disease of native coronary artery without angina pectoris; N20.0 Calculus of kidney; J84.9 Interstitial pulmonary disease, unspecified; R91.8 Other nonspecific abnormal finding of lung field ==

== ENCOUNTER 2023-04-15 07:23 | Emergency (ER) | payer MEDICARE ==
[~2023-04-15] VITALS: Ht 162.6 cm; Wt 81.8 kg
[2023-04-15] MEDS ORDERED: IPRATROPIUM 0.5MG/ALBUTEROL 2.5MG INH SOL UD 3ML (DUONEB) NEB PRN (08:15)
[2023-04-15 08:48] LABS: VENOUS BASE EXCESS -1.2 (-2.0-2.0); VENOUS HCO3 24.4 MMOL/L (23.0-27.0); VENOUS O2 SATURATION 46.3 % (60.0-80.0); VENOUS PARTIAL PRESSURE CO2 44.1 mmHg (38.0-50.0); VENOUS PARTIAL PRESSURE O2 26.6 mmHg (30.0-50.0); VENOUS PH 7.361 UNITS (7.330-7.430); VENOUS STANDARD HCO3 22.3 MMOL/L; VENOUS TOTAL CO2 25.8 MMOL/L (24.0-28.0)
[2023-04-15 09:01] LABS: BASO # 0.1 10^3/uL (0.0-0.2); EOS # 0.2 10^3/uL (0.0-0.5); EOS % 2.5 % (0.0-3.0); HEMATOCRIT 38.8 % (36.0-47.0); HEMOGLOBIN 12.7 g/dl (12.0-15.5); LYMPH # 1.2 10^3/uL (1.5-5.0); LYMPH % 17.1 % (24.0-44.0); MEAN CORPUSCULAR HEMOGLOBIN 32.6 pg (27.0-33.0); MEAN CORPUSCULAR HGB CONC 32.7 g/dl (32.0-36.5); MEAN CORPUSCULAR VOLUME 99.7 fl (80.0-96.0); MONO # 0.6 10^3/uL (0.0-0.8); MONO % 9.3 % (2.0-8.0); NEUTROPHILS # 4.6 10^3/uL (1.5-8.5); NEUTROPHILS % 68.2 % (36.0-66.0); PLATELET COUNT, AUTOMATED 382 10^3/uL (150-450); RED BLOOD COUNT 3.89 10^6/uL (4.00-5.40); WHITE BLOOD COUNT 6.8 10^3/uL (4.0-10.0)
[2023-04-15 09:24] LABS: CK-MB VALUE MASS 3.5 NG/ML (<3.6); RSV AMPLIFICATION NEGATIVE (NEGATIVE)
[2023-04-15 09:25] LABS: ALBUMIN 3.5 G/DL (3.2-5.2); ALKALINE PHOSPHATASE 59 U/L (46-116); ALT/SGPT 17 U/L (7.0-40); AST/SGOT 17 U/L (<34); BILIRUBIN,DIRECT 0.2 MG/DL (<0.4); BILIRUBIN,TOTAL 0.5 MG/DL (0.3-1.2); BLOOD UREA NITROGEN 16 MG/DL (9-23); CALCIUM LEVEL 9.8 MG/DL (8.3-10.6); CARBON DIOXIDE LEVEL 26 MMOL/L (20-31); CHLORIDE LEVEL 105 MMOL/L (98-107); CPK CREATINE PHOSPHOKINASE 103 U/L (34-145); CREATININE FOR GFR 0.95 MG/DL (0.55-1.30); GLOMERULAR FILTRATION RATE > 60.0 (>32); GLUCOSE, FASTING 103 MG/DL (74-106); MB/CK RELATIVE INDEX 3.39 (< OR =4); POTASSIUM SERUM 4.9 MMOL/L (3.5-5.1); SODIUM LEVEL 138 MMOL/L (136-145); TOTAL PROTEIN 7.2 G/DL (5.7-8.2)
[2023-04-15 09:27] LABS: THYROID STIMULATING HORMONE 3.764 uIU/ML (0.55-4.78)
[2023-04-15] MEDS ORDERED: ISOVUE-370 76% 100ML VIAL As Ordered ONE (10:56)
[2023-04-15 12:00] VITALS: BP 172/88; TEMP 98.6; O2SAT 91
== END 2023-04-15 12:17 | disposition home or self-care (01) ==
LOC: M ED 07:23
DX: R06.02 Shortness of breath (principal); E11.9 Type 2 diabetes mellitus without complications; I10 Essential (primary) hypertension; E78.5 Hyperlipidemia, unspecified; J44.9 Chronic obstructive pulmonary disease, unspecified; K58.9 Irritable bowel syndrome, unspecified; E03.9 Hypothyroidism, unspecified; F17.200 Nicotine dependence, unspecified, uncomplicated; Z79.82 Long term (current) use of aspirin; Z79.899 Other long term (current) drug therapy; Z88.0 Allergy status to penicillin; Z88.2 Allergy status to sulfonamides
CPT/HCPCS: 71046; 71275; 80048; 80076; 82550; 82553; 82803; 83880; 84443; 84484; 85025; 85379; 87631; 93005; 94640; 99284; Q9967

== ENCOUNTER → 2023-05-26 | Outpatient (CLI) | payer MEDICARE | LOC: M WHC 08:27 | PROVIDERS: ATTEND Nurse Practitioner Family | DX: Z12.31 Encounter for screening mammogram for malignant neoplasm of breast (principal) ==

== ENCOUNTER → 2023-05-28 | Outpatient (CLI) | payer MEDICARE ==
[2023-05-28 12:15] LABS: BASO # 0.1 10^3/uL (0.0-0.2); EOS # 0.1 10^3/uL (0.0-0.5); EOS % 1.3 % (0.0-3.0); HEMATOCRIT 38.1 % (36.0-47.0); HEMOGLOBIN 12.2 g/dl (12.0-15.5); LYMPH # 1.4 10^3/uL (1.5-5.0); LYMPH % 23.1 % (24.0-44.0); MEAN CORPUSCULAR HEMOGLOBIN 32.5 pg (27.0-33.0); MEAN CORPUSCULAR VOLUME 101.6 fl (80.0-96.0); MONO # 0.6 10^3/uL (0.0-0.8); MONO % 9.3 % (2.0-8.0); NEUTROPHILS # 3.9 10^3/uL (1.5-8.5); NEUTROPHILS % 64.3 % (36.0-66.0); PLATELET COUNT, AUTOMATED 275 10^3/uL (150-450); RED BLOOD COUNT 3.75 10^6/uL (4.00-5.40)
[2023-05-28 12:39] LABS: ALBUMIN 3.6 G/DL (3.2-5.2); ALKALINE PHOSPHATASE 50 U/L (46-116); ALT/SGPT 20 U/L (7.0-40); AST/SGOT 23 U/L (<34); BILIRUBIN,TOTAL 0.6 MG/DL (0.3-1.2); BLOOD UREA NITROGEN 13 MG/DL (9-23); CALCIUM LEVEL 9.3 MG/DL (8.3-10.6); CARBON DIOXIDE LEVEL 27 MMOL/L (20-31); CHLORIDE LEVEL 107 MMOL/L (98-107); CREATININE FOR GFR 0.78 MG/DL (0.55-1.30); GLOMERULAR FILTRATION RATE > 60.0 (>32); GLUCOSE, FASTING 83 MG/DL (74-106); POTASSIUM SERUM 4.6 MMOL/L (3.5-5.1); SODIUM LEVEL 140 MMOL/L (136-145); TOTAL PROTEIN 6.9 G/DL (5.7-8.2)
== END ==
LOC: M RAD 11:07
PROVIDERS: ATTEND Nurse Practitioner Family
DX: Z01.818 Encounter for other preprocedural examination (principal)

== ENCOUNTER → 2023-06-16 | Outpatient (CLI) | payer MEDICARE ==
[2023-06-16 10:45] LABS: BASO # 0.1 10^3/uL (0.0-0.2); BASO % 0.8 % (0.0-1.0); EOS # 0.2 10^3/uL (0.0-0.5); HEMOGLOBIN 11.6 g/dl (12.0-15.5); LYMPH # 1.8 10^3/uL (1.5-5.0); LYMPH % 21.2 % (24.0-44.0); MEAN CORPUSCULAR HEMOGLOBIN 32.1 pg (27.0-33.0); MEAN CORPUSCULAR HGB CONC 31.4 g/dl (32.0-36.5); MEAN CORPUSCULAR VOLUME 102.5 fl (80.0-96.0); MONO # 0.9 10^3/uL (0.0-0.8); MONO % 10.2 % (2.0-8.0); NEUTROPHILS # 5.4 10^3/uL (1.5-8.5); NEUTROPHILS % 64.4 % (36.0-66.0); PLATELET COUNT, AUTOMATED 326 10^3/uL (150-450); RED BLOOD COUNT 3.61 10^6/uL (4.00-5.40); WHITE BLOOD COUNT 8.4 10^3/uL (4.0-10.0)
[2023-06-16 13:24] LABS: ERYTHROCYTE SEDIMENTATION RATE 55 mm/hr (0-30)
[2023-06-17 04:51] LABS: C REACTIVE PROTEIN QUANTITATIV < 0.40 MG/DL (<1.0)
[2023-06-17 04:52] LABS: ALBUMIN 3.6 G/DL (3.2-5.2); ALKALINE PHOSPHATASE 57 U/L (46-116); ALT/SGPT 20 U/L (7.0-40); AST/SGOT 22 U/L (<34); BILIRUBIN,DIRECT 0.2 MG/DL (<0.4); BILIRUBIN,TOTAL 0.5 MG/DL (0.3-1.2); BLOOD UREA NITROGEN 13 MG/DL (9-23); CALCIUM LEVEL 9.7 MG/DL (8.3-10.6); CARBON DIOXIDE LEVEL 27 MMOL/L (20-31); CHLORIDE LEVEL 105 MMOL/L (98-107); CREATININE FOR GFR 0.82 MG/DL (0.55-1.30); GLOMERULAR FILTRATION RATE > 60.0 (>32); GLUCOSE, FASTING 103 MG/DL (74-106); POTASSIUM SERUM 4.9 MMOL/L (3.5-5.1); SODIUM LEVEL 141 MMOL/L (136-145); TOTAL PROTEIN 6.9 G/DL (5.7-8.2)
== END ==
LOC: M PLALAB 07:45
PROVIDERS: ATTEND Internal Medicine
DX: M06.09 Rheumatoid arthritis without rheumatoid factor, multiple sites (principal)

== ENCOUNTER → 2023-06-30 | Outpatient (CLI) | payer MEDICARE ==
[2023-06-30 12:29] LABS: CHOLESTEROL RISK RATIO 3.62 (<5); HDL CHOLESTEROL 41.4 MG/DL (>40); LDL CHOLESTEROL 73.8 MG/DL (<100); NON-HDL-C 108.6 MG/DL
== END ==
LOC: M PLALAB 07:41
PROVIDERS: ATTEND Nurse Practitioner Family
DX: E78.5 Hyperlipidemia, unspecified (principal)

== ENCOUNTER → 2023-07-01 | Outpatient (REF) | payer MEDICARE | LOC: M LAB REF 16:30 | PROVIDERS: ATTEND Nurse Practitioner Family | DX: J02.9 Acute pharyngitis, unspecified (principal); B34.9 Viral infection, unspecified ==

== ENCOUNTER → 2023-07-09 | Outpatient (REF) | payer MEDICARE ==
[2023-07-09 13:47] LABS: CREATININE, URINE 51.8 MG/DL
[2023-07-09 13:48] LABS: MALB URINE SIEMENS < 3.0 MG/L; MAU/CREAT RATIO 5.7 MCG/MG (0.0-30.0)
== END ==
LOC: M LAB REF 12:33
PROVIDERS: ATTEND Nurse Practitioner Family
DX: E11.9 Type 2 diabetes mellitus without complications (principal)

== ENCOUNTER → 2023-09-22 | Outpatient (CLI) | payer MEDICARE ==
[2023-09-22 09:20] LABS: BLOOD UREA NITROGEN 13 MG/DL (9-23); CREATININE FOR GFR 0.81 MG/DL (0.55-1.30); GLOMERULAR FILTRATION RATE > 60.0 (>32)
== END ==
LOC: M LAB 07:27
PROVIDERS: ATTEND Physician Assistant
DX: Z01.812 Encounter for preprocedural laboratory examination (principal)

== ENCOUNTER → 2023-10-01 | Outpatient (CLI) | payer MEDICARE ==
[~2023-10-01] MED LIST changes: +ISOVUE-370 76% 100ML VIAL As Ordered ONE
== END ==
LOC: M RAD 09:53
PROVIDERS: ATTEND Physician Assistant
DX: I77.819 Aortic ectasia, unspecified site (principal)
CPT/HCPCS: 75635; Q9967

== ENCOUNTER → 2023-10-06 | Outpatient (CLI) | payer MEDICARE ==
[~2023-10-06] MED LIST changes: -ISOVUE-370 76% 100ML VIAL As Ordered ONE
[2023-10-06 13:23] LABS: BASO # 0.1 10^3/uL (0.0-0.2); BASO % 0.9 % (0.0-1.0); EOS # 0.2 10^3/uL (0.0-0.5); EOS % 2.1 % (0.0-3.0); HEMATOCRIT 38.9 % (36.0-47.0); HEMOGLOBIN 12.1 g/dl (12.0-15.5); LYMPH # 1.6 10^3/uL (1.5-5.0); LYMPH % 23.3 % (24.0-44.0); MEAN CORPUSCULAR HEMOGLOBIN 31.8 pg (27.0-33.0); MEAN CORPUSCULAR HGB CONC 31.1 g/dl (32.0-36.5); MEAN CORPUSCULAR VOLUME 102.4 fl (80.0-96.0); MONO # 0.8 10^3/uL (0.0-0.8); MONO % 11.1 % (2.0-8.0); NEUTROPHILS # 4.3 10^3/uL (1.5-8.5); NEUTROPHILS % 61.2 % (36.0-66.0); PLATELET COUNT, AUTOMATED 302 10^3/uL (150-450)
[2023-10-06 13:43] LABS: C REACTIVE PROTEIN QUANTITATIV < 0.40 MG/DL (<1.0)
[2023-10-06 13:45] LABS: ALBUMIN 3.5 G/DL (3.2-5.2); ALKALINE PHOSPHATASE 52 U/L (46-116); ALT/SGPT 24 U/L (7.0-40); AST/SGOT 23 U/L (<34); BILIRUBIN,DIRECT 0.1 MG/DL (<0.4); BILIRUBIN,TOTAL 0.4 MG/DL (0.3-1.2); TOTAL PROTEIN 6.9 G/DL (5.7-8.2)
[2023-10-06 14:10] LABS: ERYTHROCYTE SEDIMENTATION RATE 55 mm/hr (0-30)
[2023-10-07 17:55] LABS: BLOOD UREA NITROGEN 19 MG/DL (9-23); CALCIUM LEVEL 9.2 MG/DL (8.3-10.6); CARBON DIOXIDE LEVEL 26 MMOL/L (20-31); CHLORIDE LEVEL 108 MMOL/L (98-107); CREATININE FOR GFR 0.81 MG/DL (0.55-1.30); GLOMERULAR FILTRATION RATE > 60.0 (>32); GLUCOSE, FASTING 99 MG/DL (74-106); POTASSIUM SERUM 4.5 MMOL/L (3.5-5.1); SODIUM LEVEL 140 MMOL/L (136-145)
== END ==
LOC: M WUC 09:30
PROVIDERS: ATTEND Internal Medicine
DX: M06.09 Rheumatoid arthritis without rheumatoid factor, multiple sites (principal)

== ENCOUNTER → 2024-01-20 | Outpatient (CLI) | payer MEDICARE ==
[2024-01-20 12:13] LABS: BASO # 0.1 10^3/uL (0.0-0.2); BASO % 1.1 % (0.0-1.0); EOS # 0.1 10^3/uL (0.0-0.5); EOS % 1.5 % (0.0-3.0); HEMATOCRIT 39.5 % (36.0-47.0); HEMOGLOBIN 12.6 g/dl (12.0-15.5); LYMPH # 1.6 10^3/uL (1.5-5.0); LYMPH % 24.3 % (24.0-44.0); MEAN CORPUSCULAR HEMOGLOBIN 32.6 pg (27.0-33.0); MEAN CORPUSCULAR HGB CONC 31.9 g/dl (32.0-36.5); MEAN CORPUSCULAR VOLUME 102.3 fl (80.0-96.0); MONO # 0.7 10^3/uL (0.0-0.8); MONO % 10.2 % (2.0-8.0); NEUTROPHILS % 61.7 % (36.0-66.0); PLATELET COUNT, AUTOMATED 250 10^3/uL (150-450); RED BLOOD COUNT 3.86 10^6/uL (4.00-5.40); WHITE BLOOD COUNT 6.6 10^3/uL (4.0-10.0)
[2024-01-20 12:29] LABS: C REACTIVE PROTEIN QUANTITATIV < 0.40 MG/DL (<1.0)
[2024-01-20 12:30] LABS: ALBUMIN 3.5 G/DL (3.2-5.2); ALKALINE PHOSPHATASE 59 U/L (46-116); ALT/SGPT 20 U/L (7.0-40); AST/SGOT 20 U/L (<34); BILIRUBIN,DIRECT 0.2 MG/DL (<0.4); BILIRUBIN,TOTAL 0.6 MG/DL (0.3-1.2); BLOOD UREA NITROGEN 13 MG/DL (9-23); CALCIUM LEVEL 9.4 MG/DL (8.3-10.6); CARBON DIOXIDE LEVEL 28 MMOL/L (20-31); CHLORIDE LEVEL 105 MMOL/L (98-107); CREATININE FOR GFR 0.84 MG/DL (0.55-1.30); GLOMERULAR FILTRATION RATE > 60.0 (>32); GLUCOSE, FASTING 87 MG/DL (74-106); POTASSIUM SERUM 4.6 MMOL/L (3.5-5.1); SODIUM LEVEL 139 MMOL/L (136-145); TOTAL PROTEIN 6.8 G/DL (5.7-8.2)
[2024-01-20 12:54] LABS: ERYTHROCYTE SEDIMENTATION RATE 49 mm/hr (0-30)
== END ==
LOC: M WUC 08:39
PROVIDERS: ATTEND Internal Medicine
DX: M06.09 Rheumatoid arthritis without rheumatoid factor, multiple sites (principal); E78.5 Hyperlipidemia, unspecified; E11.9 Type 2 diabetes mellitus without complications

== ENCOUNTER → 2024-01-20 | Outpatient (CLI) | payer MEDICARE ==
[2024-01-20 12:28] LABS: CHOLESTEROL RISK RATIO 3.45 (<5); HDL CHOLESTEROL 42.2 MG/DL (>40); LDL CHOLESTEROL 71.4 MG/DL (<100); NON-HDL-C 103.8 MG/DL
[2024-01-20 12:51] LABS: HEMOGLOBIN A1c 5.9 % (4.0-6.0)
== END ==
LOC: M WUC 08:41
PROVIDERS: ATTEND Nurse Practitioner Family
DX: E78.5 Hyperlipidemia, unspecified (principal); E11.9 Type 2 diabetes mellitus without complications

== ENCOUNTER → 2024-01-26 | Outpatient (REF) | payer MEDICARE ==
[~2024-01-26] MED LIST changes: -CRAN400C PO; +CRANBERRY400 MG PO
[2024-01-26 16:57] LABS: PERCENT SATURATION 21.2 % (13.2-45.0)
[2024-01-26 17:01] LABS: FERRITIN 45.5 NG/ML (7.3-270.7)
== END ==
LOC: M SFHCRHEU 11:29
PROVIDERS: ATTEND Internal Medicine
DX: D50.8 Other iron deficiency anemias (principal)

== ENCOUNTER → 2024-03-20 | Outpatient (CLI) | payer MEDICARE | LOC: M RAD 12:06 | PROVIDERS: ATTEND Internal Medicine Pulmonary Disease | DX: J44.9 Chronic obstructive pulmonary disease, unspecified (principal) ==

== ENCOUNTER → 2024-05-10 | Outpatient (CLI) | payer MEDICARE ==
[2024-05-10 10:15] LABS: BASO # 0.1 10^3/uL (0.0-0.2); EOS # 0.1 10^3/uL (0.0-0.5); EOS % 2.1 % (0.0-3.0); HEMATOCRIT 36.5 % (36.0-47.0); HEMOGLOBIN 12.1 g/dl (12.0-15.5); LYMPH # 1.3 10^3/uL (1.5-5.0); LYMPH % 20.5 % (24.0-44.0); MEAN CORPUSCULAR HEMOGLOBIN 33.6 pg (27.0-33.0); MEAN CORPUSCULAR HGB CONC 33.2 g/dl (32.0-36.5); MEAN CORPUSCULAR VOLUME 101.4 fl (80.0-96.0); MONO # 0.7 10^3/uL (0.0-0.8); MONO % 11.7 % (2.0-8.0); NEUTROPHILS % 63.3 % (36.0-66.0); PLATELET COUNT, AUTOMATED 280 10^3/uL (150-450); WHITE BLOOD COUNT 6.3 10^3/uL (4.0-10.0)
[2024-05-10 10:26] LABS: ERYTHROCYTE SEDIMENTATION RATE 33 mm/hr (0-30)
[2024-05-10 10:40] LABS: ALBUMIN 3.4 G/DL (3.2-5.2); ALKALINE PHOSPHATASE 53 U/L (46-116); ALT/SGPT 22 U/L (7.0-40); AST/SGOT 19 U/L (<34); BILIRUBIN,DIRECT 0.2 MG/DL (<0.4); BILIRUBIN,TOTAL 0.4 MG/DL (0.3-1.2); BLOOD UREA NITROGEN 17 MG/DL (9-23); CALCIUM LEVEL 9.3 MG/DL (8.3-10.6); CARBON DIOXIDE LEVEL 28 MMOL/L (20-31); CHLORIDE LEVEL 104 MMOL/L (98-107); CREATININE FOR GFR 0.94 MG/DL (0.55-1.30); GLOMERULAR FILTRATION RATE > 60.0 (>32); GLUCOSE, FASTING 122 MG/DL (74-106); POTASSIUM SERUM 4.3 MMOL/L (3.5-5.1); SODIUM LEVEL 134 MMOL/L (136-145); TOTAL PROTEIN 6.8 G/DL (5.7-8.2)
== END ==
LOC: M WUC 08:14
PROVIDERS: ATTEND Internal Medicine
DX: M06.09 Rheumatoid arthritis without rheumatoid factor, multiple sites (principal)

== ENCOUNTER → 2024-05-28 | Outpatient (CLI) | payer MEDICARE | LOC: M WHC 09:04 | PROVIDERS: ATTEND Nurse Practitioner Family | DX: Z12.31 Encounter for screening mammogram for malignant neoplasm of breast (principal) ==

== ENCOUNTER → 2024-07-12 | Outpatient (CLI) | payer MEDICARE ==
[2024-07-12 14:33] LABS: BASO # 0.1 10^3/uL (0.0-0.2); BASO % 0.8 % (0.0-1.0); EOS # 0.1 10^3/uL (0.0-0.5); EOS % 1.4 % (0.0-3.0); HEMOGLOBIN 12.6 g/dl (12.0-15.5); LYMPH # 1.4 10^3/uL (1.5-5.0); LYMPH % 21.4 % (24.0-44.0); MEAN CORPUSCULAR HEMOGLOBIN 33.3 pg (27.0-33.0); MEAN CORPUSCULAR HGB CONC 32.3 g/dl (32.0-36.5); MEAN CORPUSCULAR VOLUME 103.2 fl (80.0-96.0); MONO # 0.7 10^3/uL (0.0-0.8); MONO % 10.7 % (2.0-8.0); NEUTROPHILS # 4.3 10^3/uL (1.5-8.5); NEUTROPHILS % 64.3 % (36.0-66.0); PLATELET COUNT, AUTOMATED 290 10^3/uL (150-450); RED BLOOD COUNT 3.78 10^6/uL (4.00-5.40); WHITE BLOOD COUNT 6.7 10^3/uL (4.0-10.0)
[2024-07-12 14:36] LABS: C REACTIVE PROTEIN QUANTITATIV < 0.40 MG/DL (<1.0)
[2024-07-12 14:38] LABS: ALBUMIN 3.7 G/DL (3.2-5.2); ALKALINE PHOSPHATASE 55 U/L (35-104); ALT/SGPT 21 U/L (7.0-40); AST/SGOT 22 U/L (<34); BILIRUBIN,DIRECT 0.2 MG/DL (<0.4); BILIRUBIN,TOTAL 0.8 MG/DL (0.3-1.2); BLOOD UREA NITROGEN 17 MG/DL (9-23); CARBON DIOXIDE LEVEL 28 MMOL/L (20-31); CHLORIDE LEVEL 105 MMOL/L (98-107); CREATININE FOR GFR 0.91 MG/DL (0.55-1.30); GLOMERULAR FILTRATION RATE > 60.0 (>32); GLUCOSE, FASTING 106 MG/DL (74-106); POTASSIUM SERUM 4.7 MMOL/L (3.5-5.1); SODIUM LEVEL 139 MMOL/L (136-145); TOTAL PROTEIN 7.6 G/DL (5.7-8.2)
[2024-07-12 14:46] LABS: ERYTHROCYTE SEDIMENTATION RATE 58 mm/hr (0-30)
== END ==
LOC: M WUC 09:25
PROVIDERS: ATTEND Internal Medicine
DX: M06.09 Rheumatoid arthritis without rheumatoid factor, multiple sites (principal)

== ENCOUNTER → 2024-09-20 | Outpatient (CLI) | payer MEDICARE | LOC: M RAD 09:00 | PROVIDERS: ATTEND Physician Assistant | DX: I71.60 Thoracoabdominal aortic aneurysm, without rupture, unspecified (principal) ==

== ENCOUNTER → 2024-10-14 | Outpatient (CLI) | payer MEDICARE ==
[2024-10-14 12:39] LABS: BASO # 0.1 10^3/uL (0.0-0.2); BASO % 0.8 % (0.0-1.0); EOS # 0.2 10^3/uL (0.0-0.5); EOS % 2.3 % (0.0-3.0); HEMATOCRIT 36.4 % (36.0-47.0); HEMOGLOBIN 11.8 g/dl (12.0-15.5); LYMPH # 1.6 10^3/uL (1.5-5.0); LYMPH % 21.9 % (24.0-44.0); MEAN CORPUSCULAR HGB CONC 32.4 g/dl (32.0-36.5); MEAN CORPUSCULAR VOLUME 101.7 fl (80.0-96.0); MONO # 0.8 10^3/uL (0.0-0.8); MONO % 11.2 % (2.0-8.0); NEUTROPHILS # 4.7 10^3/uL (1.5-8.5); NEUTROPHILS % 62.3 % (36.0-66.0); PLATELET COUNT, AUTOMATED 338 10^3/uL (150-450); RED BLOOD COUNT 3.58 10^6/uL (4.00-5.40); WHITE BLOOD COUNT 7.5 10^3/uL (4.0-10.0)
[2024-10-14 13:07] LABS: ALBUMIN 3.4 G/DL (3.2-5.2); ALKALINE PHOSPHATASE 50 U/L (35-104); ALT/SGPT 27 U/L (7.0-40); AST/SGOT 27 U/L (<34); BILIRUBIN,DIRECT 0.2 MG/DL (<0.4); BILIRUBIN,TOTAL 0.5 MG/DL (0.3-1.2); BLOOD UREA NITROGEN 21 MG/DL (9-23); C REACTIVE PROTEIN QUANTITATIV < 0.50 MG/DL (<1.0); CALCIUM LEVEL 9.7 MG/DL (8.3-10.6); CARBON DIOXIDE LEVEL 27 MMOL/L (20-31); CHLORIDE LEVEL 102 MMOL/L (98-107); GLOMERULAR FILTRATION RATE > 60.0 (>32); GLUCOSE, FASTING 87 MG/DL (74-106); SODIUM LEVEL 140 MMOL/L (136-145); TOTAL PROTEIN 6.9 G/DL (5.7-8.2)
[2024-10-14 13:14] LABS: ERYTHROCYTE SEDIMENTATION RATE 46 mm/hr (0-30)
== END ==
LOC: M WUC 09:35
PROVIDERS: ATTEND Internal Medicine
DX: M06.09 Rheumatoid arthritis without rheumatoid factor, multiple sites (principal)

== ENCOUNTER → 2024-12-31 | Outpatient (CLI) | payer MEDICARE ==
[2024-12-31 14:59] LABS: BASO # 0.1 10^3/uL (0.0-0.2); BASO % 0.9 % (0.0-1.0); EOS # 0.1 10^3/uL (0.0-0.5); EOS % 1.6 % (0.0-3.0); HEMATOCRIT 36.7 % (36.0-47.0); HEMOGLOBIN 11.6 g/dl (12.0-15.5); LYMPH # 1.3 10^3/uL (1.5-5.0); MEAN CORPUSCULAR HGB CONC 31.6 g/dl (32.0-36.5); MEAN CORPUSCULAR VOLUME 101.4 fl (80.0-96.0); MONO # 0.7 10^3/uL (0.0-0.8); MONO % 10.2 % (2.0-8.0); NEUTROPHILS # 4.8 10^3/uL (1.5-8.5); PLATELET COUNT, AUTOMATED 298 10^3/uL (150-450); RED BLOOD COUNT 3.62 10^6/uL (4.00-5.40)
[2024-12-31 15:10] LABS: ERYTHROCYTE SEDIMENTATION RATE 57 mm/hr (0-30)
[2024-12-31 15:28] LABS: ALBUMIN 3.6 G/DL (3.2-5.2); BILIRUBIN,DIRECT 0.2 MG/DL (<0.4); BILIRUBIN,TOTAL 0.5 MG/DL (0.3-1.2); C REACTIVE PROTEIN QUANTITATIV 0.8 MG/DL (<1.0); CREATININE FOR GFR 0.84 MG/DL (0.55-1.30); GLOMERULAR FILTRATION RATE 69.8 (>32); POTASSIUM SERUM 5.1 MMOL/L (3.5-5.1)
== END ==
LOC: M WUC 11:09
PROVIDERS: ATTEND Internal Medicine
DX: M06.09 Rheumatoid arthritis without rheumatoid factor, multiple sites (principal)

== ENCOUNTER → 2024-12-31 | Outpatient (CLI) | payer MEDICARE ==
[2024-12-31 14:58] LABS: BASO # 0.1 10^3/uL (0.0-0.2); EOS # 0.1 10^3/uL (0.0-0.5); EOS % 1.4 % (0.0-3.0); HEMATOCRIT 36.4 % (36.0-47.0); HEMOGLOBIN 11.7 g/dl (12.0-15.5); LYMPH # 1.2 10^3/uL (1.5-5.0); LYMPH % 17.5 % (24.0-44.0); MEAN CORPUSCULAR HEMOGLOBIN 33.4 pg (27.0-33.0); MEAN CORPUSCULAR HGB CONC 32.1 g/dl (32.0-36.5); MONO # 0.7 10^3/uL (0.0-0.8); MONO % 9.7 % (2.0-8.0); NEUTROPHILS % 69.8 % (36.0-66.0); PLATELET COUNT, AUTOMATED 287 10^3/uL (150-450); WHITE BLOOD COUNT 7.1 10^3/uL (4.0-10.0)
[2024-12-31 15:29] LABS: THYROID STIMULATING HORMONE 3.141 uIU/ML (0.55-4.78)
[2024-12-31 15:30] LABS: ALBUMIN 3.5 G/DL (3.2-5.2); BILIRUBIN,TOTAL 0.5 MG/DL (0.3-1.2); CHOLESTEROL RISK RATIO 2.88 (<5); CREATININE FOR GFR 0.85 MG/DL (0.55-1.30); GLOMERULAR FILTRATION RATE 68.8 (>32); HDL CHOLESTEROL 47.1 MG/DL (>40); LDL CHOLESTEROL 60.5 MG/DL (<100); MAGNESIUM LEVEL 1.7 MG/DL (1.8-2.4); NON-HDL-C 88.9 MG/DL; POTASSIUM SERUM 4.8 MMOL/L (3.5-5.1)
[2024-12-31 15:34] LABS: HEMOGLOBIN A1c 5.9 % (4.0-6.0)
== END ==
LOC: M WUC 11:06
PROVIDERS: ATTEND Nurse Practitioner Family
DX: E11.9 Type 2 diabetes mellitus without complications (principal); E03.9 Hypothyroidism, unspecified; E78.5 Hyperlipidemia, unspecified; E66.9 Obesity, unspecified; E55.9 Vitamin D deficiency, unspecified; M06.09 Rheumatoid arthritis without rheumatoid factor, multiple sites

== ENCOUNTER → 2025-03-21 | Outpatient (CLI) | payer MEDICARE | LOC: M RAD 09:32 | PROVIDERS: ATTEND Physician Assistant | DX: I71.60 Thoracoabdominal aortic aneurysm, without rupture, unspecified (principal) ==

== ENCOUNTER → 2025-04-08 | Outpatient (CLI) | payer MEDICARE ==
[2025-04-08 15:31] LABS: C REACTIVE PROTEIN QUANTITATIV 0.55 MG/DL (<1.0)
[2025-04-08 15:32] LABS: ALT/SGPT 20.0 U/L (7.0-40); AST/SGOT 25.0 U/L (<34); CALCIUM LEVEL 9.5 MG/DL (8.3-10.6); CARBON DIOXIDE LEVEL 30.0 MMOL/L (20-31); CHLORIDE LEVEL 99.0 MMOL/L (98-107); CREATININE FOR GFR 0.94 MG/DL (0.55-1.30); GLOMERULAR FILTRATION RATE 60.6 (>32); POTASSIUM SERUM 4.5 MMOL/L (3.5-5.1); SODIUM LEVEL 138.0 MMOL/L (136-145)
[2025-04-08 15:41] LABS: BASO # 0.1 10^3/uL (0.0-0.2); BASO % 0.7 % (0.0-1.0); EOS # 0.2 10^3/uL (0.0-0.5); EOS % 2.0 % (0.0-3.0); LYMPH # 1.6 10^3/uL (1.5-5.0); LYMPH % 21.0 % (24.0-44.0); MONO # 0.7 10^3/uL (0.0-0.8); MONO % 9.8 % (2.0-8.0); NEUTROPHILS # 4.9 10^3/uL (1.5-8.5); NEUTROPHILS % 65.6 % (36.0-66.0); PLATELET COUNT, AUTOMATED 332 10^3/uL (150-450)
[2025-04-08 15:46] LABS: ERYTHROCYTE SEDIMENTATION RATE 50 mm/hr (0-30)
== END ==
LOC: M WUC 11:31
PROVIDERS: ATTEND Internal Medicine
DX: M06.09 Rheumatoid arthritis without rheumatoid factor, multiple sites (principal)

== ENCOUNTER → 2025-04-10 | Outpatient (REF) | payer MEDICARE | LOC: M LAB REF 11:52 | PROVIDERS: ATTEND Registered Nurse | DX: L08.9 Local infection of the skin and subcutaneous tissue, unspecified (principal) ==

== ENCOUNTER → 2025-05-31 | Outpatient (CLI) | payer MEDICARE ==
[~2025-05-31] MED LIST changes: -FOLI0.8T3 PO; +FOLI800T5 PO
== END ==
LOC: M WHC 08:53
PROVIDERS: ATTEND Physician Assistant
DX: Z12.31 Encounter for screening mammogram for malignant neoplasm of breast (principal); R92.323 Mammographic fibroglandular density, bilateral breasts

== ENCOUNTER → 2025-06-14 | Outpatient (REF) | payer MEDICARE ==
[2025-06-14 16:03] LABS: IRON (FE) 39.0 UG/DL (50-170); PERCENT SATURATION 12.8 % (13.2-45.0)
== END ==
LOC: M SFHCRHEU 11:45
PROVIDERS: ATTEND Internal Medicine
DX: D50.8 Other iron deficiency anemias (principal)

== ENCOUNTER → 2025-08-08 | Outpatient (CLI) | payer MEDICARE ==
[2025-08-08 12:53] LABS: C REACTIVE PROTEIN QUANTITATIV 2.15 MG/DL (<1.0)
[2025-08-08 12:55] LABS: ALT/SGPT 15.0 U/L (7.0-40); AST/SGOT 20.0 U/L (<34); CALCIUM LEVEL 9.7 MG/DL (8.3-10.6); CARBON DIOXIDE LEVEL 29.0 MMOL/L (20-31); CHLORIDE LEVEL 96.0 MMOL/L (98-107); CREATININE FOR GFR 0.99 MG/DL (0.55-1.30); GLOMERULAR FILTRATION RATE 56.9 (>32); POTASSIUM SERUM 4.8 MMOL/L (3.5-5.1); SODIUM LEVEL 134.0 MMOL/L (136-145)
[2025-08-08 13:06] LABS: BASO # 0.1 10^3/uL (0.0-0.2); BASO % 0.8 % (0.0-1.0); EOS # 0.2 10^3/uL (0.0-0.5); EOS % 2.3 % (0.0-3.0); LYMPH # 1.4 10^3/uL (1.5-5.0); LYMPH % 19.7 % (24.0-44.0); MONO # 0.9 10^3/uL (0.0-0.8); MONO % 12.9 % (2.0-8.0); NEUTROPHILS # 4.5 10^3/uL (1.5-8.5); NEUTROPHILS % 61.8 % (36.0-66.0); PLATELET COUNT, AUTOMATED 301 10^3/uL (150-450)
== END ==
LOC: M WUC 08:06
PROVIDERS: ATTEND Internal Medicine
DX: M06.09 Rheumatoid arthritis without rheumatoid factor, multiple sites (principal)